=== PATIENT | female | born 1935 | race Caucasian/White ===

== ENCOUNTER 2017-08-09 18:19 | Inpatient (IN) | payer OTHER, MEDICARE ==
[~2017-08-09] VITALS: Ht 158.8 cm; Wt 60.0 kg
[~2017-08-09 18:19] MED LIST: CLOP75 PO; ENAL20TA PO; FELO10TA PO; FISHOIL PO; OS-CTAB3 PO; SIMV40TA PO; TAB-TAB PO
[2017-08-09 18:27] VITALS: BP 154/65; PULSE 92; RESP 18; TEMP 99.1; O2SAT 99
--- NOTE | 2017-08-09 18:55 | PD ---
HPI Chief Complaint: Skin Problem Time Seen by Provider: 18:41 Travel History International Travel<30 days: No Contact w/Intl Traveler<30days: No Traveled to known affect area: No History of Present Illness HPI 82-year-old female complains of redness swelling and pain right foot and right lower leg. Patient states that she tripped and fell about 4 days ago. Patient was seen at local urgent care center and had x-ray done however does not know the results of the x-ray. Patient was put on antibiotic, cephalexin, 500 mg twice a day.. Patient has been taking the antibiotic as directed. Patient states that she had increase in redness swelling the other since then. Patient denies any other injury. Patient complains sharp pain localized the right foot and right lower leg. Patient denies any pain radiation. Patient states the pain is worse with weightbearing. On a scale of 1-10 the pain is a 7. Patient denies any fever chills. Patient has history hypertension, hyperlipidemia. Patient denies history diabetes. 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 PFSH Past Medical History Hx Anticoagulant Therapy: Yes (PLAVIX) Arthritis: Yes (HANDS) Cancer: Yes (SKIN) Cardiovascular Problems: Yes High Cholesterol: Yes Cerebrovascular Accident: Yes Diabetes: Yes (BORDERLINE) Endocrine: Yes Genitourinary: Yes (RETENTION) Hypertension: Yes Immune Disorder: No Musculoskeletal: Yes Neurologic: No Psychiatric: No Reproductive: No Respiratory: No ?: Not Past Surgical History Gynecologic Surgery: Yes (HYSTERECTOMY) Hysterectomy: Yes Social History Alcohol Use: Yes (wine couple times a week) Tobacco Use: No Substance Use: No Allergies-Medications (Allergen,Severity, Reaction): Coded Allergies: No Known Allergies (Verified Adverse Reaction, Unknown, 08/09/17) Reported Meds & Prescriptions Reported Meds & Active Scripts Active Reported Cephalexin 500 Mg Cap 500 Mg PO Q12H Latanoprost Opth Drops (Latanoprost) 0.005% Drops 1 Drop EACH EYE HS Refrigerate until opened. Atorvastatin (Atorvastatin Calcium) 40 Mg Tab 40 Mg PO HS Felodipine ER (Felodipine) 10 mg Yumiko 10 Mg PO DAILY Enalapril (Enalapril Maleate) 20 Mg Tab 20 Mg PO DAILY Plavix (Clopidogrel Bisulfate) 75 Mg Tab 75 Mg PO DAILY Review of Systems General / Constitutional: No: Fever Eyes: No: Visual changes HENT: No: Headaches Cardiovascular: No: Chest Pain or Discomfort Respiratory: No: Shortness of Breath Gastrointestinal: No: Abdominal Pain Genitourinary: No: Dysuria Musculoskeletal: Positive: Edema, Pain Skin: No Rash Neurologic: No: Weakness Psychiatric: No: Depression Endocrine: No: Polydipsia Hematologic/Lymphatic: No: Easy Bruising Physical Exam Narrative GENERAL: Well-nourished, well-developed patient. SKIN: Focused skin assessment warm/dry. HEAD: Normocephalic. EYES: No scleral icterus. No injection or drainage. NECK: Supple, trachea midline. No JVD or lymphadenopathy. CARDIOVASCULAR: Regular rate and rhythm without murmurs, gallops, or rubs. RESPIRATORY: Breath sounds equal bilaterally. No accessory muscle use. GASTROINTESTINAL: Abdomen soft, non-tender, nondistended. MUSCULOSKELETAL: No cyanosis, or edema. BACK: Nontender without obvious deformity. No CVA tenderness. Patient has redness swelling tenderness diffuse over the right foot up to the right ankle. Mild ecchymosis noted lateral aspect of the right lower leg with tenderness on palpation. A healing wound with a scab over the dorsal aspect of the right foot. Data Data Last Documented VS Vital Signs Date Time Temp Pulse Resp B/P (MAP) Pulse Ox O2 Delivery O2 Flow Rate FiO2 08/09/17 19:06 18 98 Room Air 08/09/17 18:27 99.1 92 154/65 (94) Orders Orders Complete Blood Count With Diff (08/09/17 18:48) Comprehensive Metabolic Panel (08/09/17 18:48) Prothrombin Time / Inr (Pt) (08/09/17 18:48) Act Partial Throm Time (Ptt) (08/09/17 18:48) Blood Culture (08/09/17 18:48) Urinalysis - C+S If Indicated (08/09/17 18:48) Chest, Single Ap (08/09/17 18:48) Iv Access Insert/Monitor (08/09/17 18:48) Ecg Monitoring (08/09/17 18:48) Oximetry (08/09/17 18:48) Foot, Complete ([id number]) (08/09/17 18:48) Tibia/Fibula (Ap/Lat) (08/09/17 18:48) Labs Laboratory Tests Test 08/09/17 19:04 08/09/17 20:10 White Blood Count 9.8 TH/MM3 Red Blood Count 4.21 MIL/MM3 Hemoglobin 12.4 GM/DL Hematocrit 36.4 % Mean Corpuscular Volume 86.3 FL Mean Corpuscular Hemoglobin 29.4 PG Mean Corpuscular Hemoglobin Concent 34.1 % Red Cell Distribution Width 12.6 % Platelet Count 222 TH/MM3 Mean Platelet Volume 8.4 FL Neutrophils (%) (Auto) 61.3 % Lymphocytes (%) (Auto) 26.5 % Monocytes (%) (Auto) 9.5 % Eosinophils (%) (Auto) 2.1 % Basophils (%) (Auto) 0.6 % Neutrophils # (Auto) 6.0 TH/MM3 Lymphocytes # (Auto) 2.6 TH/MM3 Monocytes # (Auto) 0.9 TH/MM3 Eosinophils # (Auto) 0.2 TH/MM3 Basophils # (Auto) 0.1 TH/MM3 CBC Comment DIFF FINAL Differential Comment Prothrombin Time 10.1 SEC Prothromb Time International Ratio 1.0 RATIO Activated Partial Thromboplast Time 28.5 SEC Blood Urea Nitrogen 20 MG/DL Creatinine 0.82 MG/DL Random Glucose 118 MG/DL Total Protein 8.8 GM/DL Albumin 4.2 GM/DL Calcium Level 9.9 MG/DL Alkaline Phosphatase 118 U/L Aspartate Amino Transf (AST/SGOT) 21 U/L Alanine Aminotransferase (ALT/SGPT) 26 U/L Total Bilirubin 0.8 MG/DL Sodium Level 137 MEQ/L Potassium Level 3.8 MEQ/L Chloride Level 103 MEQ/L Carbon Dioxide Level 26.5 MEQ/L Anion Gap 8 MEQ/L Estimat Glomerular Filtration Rate 66 ML/MIN Urine Color YELLOW Urine Turbidity CLEAR Urine pH 6.0 Urine Specific [place] 1.020 Urine Protein 30 mg/dL Urine Glucose (UA) NEG mg/dL Urine Ketones 15 mg/dL Urine Occult Blood SMALL Urine Nitrite NEG Urine Bilirubin NEG Urine Urobilinogen 0.2 MG/DL Urine Leukocyte Esterase NEG Urine RBC 0-3 /hpf Urine WBC 3-5 /hpf Urine Squamous Epithelial Cells 0-5 /hpf Urine Amorphous Sediment FEW Urine Hyaline Casts 0-2 /lpf Urine Granular Casts 3-5 /lpf Microscopic Urinalysis Comment CULT NOT INDICATED MDM Medical Decision Making Medical Screen Exam Complete: Yes Emergency Medical Condition: Yes Interpretation(s) 20:55 PM. Last Impressions Tibia/Fibula X-Ray 08/09/[id number] Signed Impressions: Service Date/Time: Wednesday, August 09, 2017 18:53 - CONCLUSION: 1. No acute bony abnormalities. Mild soft tissue swelling over the lateral malleolus. Kole Casper MD Foot X-Ray [id number] Signed Impressions: Service Date/Time: Wednesday, August 09, 2017 18:53 - CONCLUSION: 1. Soft tissue swelling on the dorsum of the foot. No acute bony abnormalities. 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 Kole Casper MD Chest X-Ray [id number]/09/171847 Signed Impressions: Service Date/Time: Wednesday, August 09, 2017 18:53 - CONCLUSION: No acute disease. Kole Casper MD 2055 PM. CBC within normal limits. CMP within normal limits. BUN 20. Alkaline phosphatase 118. UA is negative. Differential Diagnosis Differential diagnosis including cellulitis, fracture, dislocation. Narrative Course 82-year-old female with redness swelling tenderness right foot an injury to the right lower leg. Status post fall. Vancomycin 1 g IV given. Diagnosis Primary Impression: Cellulitis of right foot Additional Impression: Failure of outpatient treatment Admitting Information Admitting Physician Requests: Admit Moustapha Love MD Aug 09, 2017 18:55
[2017-08-09] MEDS ORDERED: LATA0.002 EACH EYE (19:05)
[2017-08-09] MEDS ORDERED: PLAV75TA29 PO (19:05)
[2017-08-09] MEDS ORDERED: ATOR40TA16 PO (19:05)
[2017-08-09] MEDS ORDERED: FELO10TA PO (19:05)
[2017-08-09] MEDS ORDERED: ENAL20TA PO (19:05)
[2017-08-09 19:06] VITALS: RESP 18; O2SAT 98
[2017-08-09] MEDS ORDERED: CEPH500C PO (19:08)
[2017-08-09 19:11] LABS: BASOPHIL # 0.1 TH/MM3 (0-0.2); BASOPHIL % 0.6 % (0.0-2.0); EOSINOPHIL # 0.2 TH/MM3 (0-0.4); EOSINOPHIL % 2.1 % (0.0-4.0); HEMATOCRIT 36.4 % (35.0-46.0); HEMOGLOBIN 12.4 GM/DL (11.6-15.3); LYMPH % 26.5 % (9.0-44.0); LYMPHOCYTE # 2.6 TH/MM3 (1.0-4.8); MEAN CELL VOLUME 86.3 FL (80.0-100.0); MEAN CORPUSCULAR HEMOGLOBIN 29.4 PG (27.0-34.0); MEAN CORPUSCULAR HGB CONC 34.1 % (32.0-36.0); MEAN PLATELET VOLUME 8.4 FL (7.0-11.0); MONO % 9.5 % (0.0-8.0); MONOCYTE # 0.9 TH/MM3 (0-0.9); NEUT % 61.3 % (16.0-70.0); PLATELET COUNT 222 TH/MM3 (150-450); RED BLOOD COUNT 4.21 MIL/MM3 (4.00-5.30); RED CELL DISTRIBUTION WIDTH 12.6 % (11.6-17.2); WHITE BLOOD COUNT 9.8 TH/MM3 (4.0-11.0)
[2017-08-09 19:18] LABS: CHLORIDE 103 MEQ/L (98-107); SODIUM (NA) 137 MEQ/L (136-145)
[2017-08-09 19:21] LABS: CALCIUM 9.9 MG/DL (8.5-10.1)
[2017-08-09 19:22] LABS: ALBUMIN 4.2 GM/DL (3.4-5.0); BICARBONATE 26.5 MEQ/L (21.0-32.0); BLOOD UREA NITROGEN 20 MG/DL (7-18); GLUCOSE,RANDOM 118 MG/DL (74-106)
[2017-08-09 19:24] LABS: PROTHROMBIN TIME - PATIENT 10.1 SEC (9.8-11.6)
[2017-08-09 19:25] LABS: ALT (GPT) 26 U/L (10-53); AST (GOT) 21 U/L (15-37); CREATININE 0.82 MG/DL (0.50-1.00); GLOMERULAR FILTRATION RATE 66 ML/MIN (>89)
[2017-08-09 19:26] LABS: TOTAL BILIRUBIN ADULT 0.8 MG/DL (0.2-1.0); TOTAL PROTEIN 8.8 GM/DL (6.4-8.2)
[2017-08-09 19:28] LABS: ALKALINE PHOSPHATASE 118 U/L (45-117)
--- NOTE | 2017-08-09 19:39 | RADRPT ---
EXAM DATE/TIME: 08/09/2017 18:53 [facility] COMPARISON: CHEST SINGLE AP, October 30, 2010, 15:54. INDICATIONS : Trauma, fall. MEDICAL HISTORY : Hypertension. SURGICAL HISTORY : None. ENCOUNTER: Initial ACUITY: 4 - 6 days PAIN SCORE: 0/10 LOCATION: Bilateral chest FINDINGS: A single view of the chest demonstrates the lungs to be symmetrically aerated without evidence of mas s, infiltrate or effusion. The cardiomediastinal contours are unremarkable. Osseous structures are intact. CONCLUSION: No acute disease. Kole Casper MD on August 09, 2017 at 19:36 Board Certified Radiologist. This report was verified electronically.
--- NOTE | 2017-08-09 19:42 | RADRPT ---
EXAM DATE/TIME: 08/09/2017 18:53 [facility] COMPARISON: No previous studies available for comparison. INDICATIONS : Redness and swelling to dorsal right foot after tripping 4 days ago over a tree stump. MEDICAL HISTORY : None. SURGICAL HISTORY : None. ENCOUNTER: Initial ACUITY: 4 - 6 days PAIN SCORE: 7/10 LOCATION: Right foot. FINDINGS: Three view examination of the right foot demonstrates no dislocation, or fracture. The tarsal bones appear intact. The interphalangeal and metatarsophalangeal joints are intact. The calcaneus is int act. Bony mineralization is normal. CONCLUSION: 1. Soft tissue swelling on the dorsum of the foot. No acute bony abnormalities. Mild to moderate oste oarthritis of the right foot. Kole Casper MD on August 09, 2017 at 19:37 Board Certified Radiologist. This report was verified electronically.
--- NOTE | 2017-08-09 19:43 | RADRPT ---
EXAM DATE/TIME: 08/09/2017 18:53 [facility] COMPARISON: No previous studies available for comparison. INDICATIONS : Redness and swelling to lateral distal right tibia after tripping over a tree stump 4 days ago. MEDICAL HISTORY : None. SURGICAL HISTORY : None. ENCOUNTER: Initial ACUITY: 4 - 6 days PAIN SCORE: 7/10 LOCATION: Right tibia. FINDINGS: Two view examination of the right tibia demonstrates no evidence of fracture or dislocation. Bony mi neralization is normal. The soft tissue structures are swollen over the lateral malleolus. CONCLUSION: 1. No acute bony abnormalities. Mild soft tissue swelling over the lateral malleolus. Kole Casper MD on August 09, 2017 at 19:40 Board Certified Radiologist. This report was verified electronically.
[2017-08-09 20:14] LABS: BILIRUBIN, URINE NEG (NEG); BLOOD, URINE SMALL (NEG); GLUCOSE,URINE NEG (NEG); KETONE, URINE 15 mg/dL (NEG); NITRITE,URINE NEG (NEG); URINE COLOR YELLOW (YELLW/STRAW); URINE LEUKOCYTE ESTERASE NEG (NEG)
[2017-08-09 20:22] LABS: HYALINE CAST, URINE 0-2 /lpf (RARE)
[2017-08-09 20:23] LABS: AMORPHOUS SEDIMENT, URINE FEW; RBC, URINE 0-3 /hpf (0-3); SQUAMOUS EPITHELIAL CELL URINE 0-5 /hpf (0-5)
[2017-08-09] MEDS ORDERED: LACTULOSE SYRUP 20 GM/30 ML CUP PO PRN (22:45)
[2017-08-09] MEDS ORDERED: Vancomycin Consult Pharmacy 1 EA OTHER SCH (22:45)
[2017-08-09] MEDS ORDERED: NALOXONE HCL 0.4 MG/ML AMP IV PUSH PRN (22:45)
[2017-08-09] MEDS ORDERED: SENNOSIDES 8.6 MG TAB PO PRN (22:45)
[2017-08-09] MEDS ORDERED: ONDANSETRON HCL 4 MG/2 ML VIAL IVP PRN (22:45)
[2017-08-09] MEDS ORDERED: MAGNESIUM HYDROXIDE SUSP 30 ML CUP PO PRN (22:45)
[2017-08-09] MEDS ORDERED: BISACODYL 10 MG SUPP RECTAL PRN (22:45)
[2017-08-09] MEDS: PIPERACIL-TAZO 3.375 GM PREMIX 50 ML IV SCH (23:02)
[2017-08-09] MEDS: ENOXAPARIN SODIUM 40 MG/0.4 ML SYRINGE SQ SCH (23:02)
[2017-08-09 23:09] VITALS: BP 138/62; PULSE 83
[2017-08-09 23:59] VITALS: PULSE 79
[2017-08-10] VITALS (7 sets, daily range): BP systolic 111–155; BP diastolic 55–70; PULSE 69–79; RESP 16–20; TEMP 97.6–98.8; O2SAT 93–97
[2017-08-10] MEDS: LATANOPROST 0.005% OPHT SOLN 2.5 ML BTL EACH EYE SCH ×2 (00:20→21:29)
[2017-08-10] MEDS: VANCOMYCIN 1,000 MG/NS 250 ML IV SCH ×4 (00:20→23:29)
[2017-08-10] MEDS: PIPERACIL-TAZO 3.375 GM PREMIX 50 ML IV SCH ×4 (05:22→21:29)
[2017-08-10 06:38] LABS: AUTOMATED NEUTROPHIL # 3.6 TH/MM3 (1.8-7.7); BASOPHIL % 0.4 % (0.0-2.0); EOSINOPHIL # 0.2 TH/MM3 (0-0.4); EOSINOPHIL % 2.4 % (0.0-4.0); HEMOGLOBIN 10.9 GM/DL (11.6-15.3); LYMPH % 34.9 % (9.0-44.0); LYMPHOCYTE # 2.5 TH/MM3 (1.0-4.8); MEAN CORPUSCULAR HEMOGLOBIN 28.4 PG (27.0-34.0); MEAN PLATELET VOLUME 8.8 FL (7.0-11.0); MONO % 10.7 % (0.0-8.0); MONOCYTE # 0.8 TH/MM3 (0-0.9); NEUT % 51.6 % (16.0-70.0); PLATELET COUNT 204 TH/MM3 (150-450); RED BLOOD COUNT 3.83 MIL/MM3 (4.00-5.30); RED CELL DISTRIBUTION WIDTH 12.6 % (11.6-17.2); WHITE BLOOD COUNT 7.1 TH/MM3 (4.0-11.0)
[2017-08-10 06:55] LABS: BICARBONATE 26.3 MEQ/L (21.0-32.0); CREATININE 0.68 MG/DL (0.50-1.00)
[2017-08-10] MEDS: ENALAPRIL MALEATE 10 MG TAB PO SCH (08:58)
[2017-08-10] MEDS: CLOPIDOGREL 75 MG TAB PO SCH (08:58)
[2017-08-10] MEDS: SODIUM CHLORIDE 0.9% FLUSH 10 ML FLUSH IV FLUSH SCH ×2 (08:58→21:29)
--- NOTE | 2017-08-10 10:50 | HHI.HP ---
[facility] Service [facility] Primary Care Physician Jaron Spear MD Admission Diagnosis Right foot cellulitis. Failure of outpatient treatment. Diagnoses: (1) Failure of outpatient treatment (2) Cellulitis of right foot Chief Complaint: Right lower extremity swelling and erythema Travel History International Travel<30 Days: No Contact w/Intl Traveler <30 Da: No Traveled to Known Affected Are: No History of Present Illness This is an 82-year-old female patient with a known medical history of CVA, hypertension and hyperlipidemia who presented to the ED with complaints of right lower extremity erythema and swelling. Patient states that 4 days ago she tripped and fell hitting the dorsal aspect of her right foot. Over the course of the last 4 days she went to the urgent care, had x-rays done with unknown results and placed on antibiotics, cephalexin 500 mg twice a day. Patient states she took 2 days worth of antibiotics and the swelling and erythema and just became worse with worsening pain which led to her presentation. Patient denies any recent headache, shortness of breath, abdominal pain, nausea, vomiting or diarrhea or dysuria. She does admit to subjective fevers and chills over the last couple days. Pain is rated a 7 out of 10 at its worst, with worsening when weightbearing. Denies any history of diabetes. PCP is Dr. Spear. Last seen 1 month ago with no changes in medicines. Review of Systems Constitutional: COMPLAINS OF: Fever, Chills Eyes: DENIES: Blurred vision, Diplopia Respiratory: DENIES: Cough, Sputum production, Shortness of breath Cardiovascular: DENIES: Chest pain Gastrointestinal: DENIES: Abdominal pain, Black stools, Bloody stools, Constipation, Diarrhea, Nausea, Vomiting Musculoskeletal: DENIES: Joint pain Integumentary: COMPLAINS OF: Abnormal pigmentation (Right foot erythema and swelling and ecchymosis) Hematologic/lymphatic: DENIES: Bruising Psychiatric: DENIES: Anxiety Except as stated in HPI: all other systems reviewed are Neg Past Family Social History Past Medical History History of skin cancer Dyslipidemia History of CVA with no residual weakness on Plavix Arthritis Hypertension Past Surgical History Hysterectomy Reported Medications Active Reported Cephalexin 500 Mg Cap 500 Mg PO Q12H Latanoprost Opth Drops (Latanoprost) 0.005% Drops 1 Drop EACH EYE HS Refrigerate until opened. Atorvastatin (Atorvastatin Calcium) 40 Mg Tab 40 Mg PO HS Felodipine ER (Felodipine) 10 mg Yumiko 10 Mg PO DAILY Enalapril (Enalapril Maleate) 20 Mg Tab 20 Mg PO DAILY Plavix (Clopidogrel Bisulfate) 75 Mg Tab 75 Mg PO DAILY Allergies: Coded Allergies: No Known Allergies (Verified Allergy, Unknown, 08/09/17) Active Ordered Medications Current Medications Medications (Trade) Dose Ordered Sig/Deana Route Start Time Stop Time Status Last Admin (NS Flush) 2 ml UNSCH PRN IV FLUSH 08/09/17 22:45 (NS Flush) 2 ml BID IV FLUSH 08/10/17 09:00 08/10/17 08:58 (Tylenol) 650 mg Q4H PRN PO 08/09/17 22:45 (Zofran Inj) 4 mg Q6H PRN IVP 08/09/17 22:45 (Lovenox Inj) 40 mg Q24H SQ 08/09/17 22:45 08/09/17 23:02 (Narcan Inj) 0.4 mg UNSCH PRN IV PUSH 08/09/17 22:45 (Milk Of Magnesia Liq) 30 ml Q12H PRN PO 08/09/17 22:45 (Senokot) 17.2 mg Q12H PRN PO 08/09/17 22:45 (Dulcolax Supp) 10 mg DAILY PRN RECTAL 08/09/17 22:45 (Lactulose Liq) 30 ml DAILY PRN PO 08/09/17 22:45 (Lipitor) 40 mg HS PO 08/10/17 21:00 (Plavix) 75 mg DAILY PO 08/10/17 09:00 08/10/17 08:58 (Vasotec) 20 mg DAILY PO 08/10/17 09:00 08/10/17 08:58 (Xalatan 0.005% Opth Soln) 1 drop HS EACH EYE 08/09/17 22:45 08/10/17 00:20 (Norvasc) 10 mg DAILY PO 08/10/17 09:00 08/10/17 08:58 Piperacillin Sod/ Tazobactam Sod 50 ml @ 100 mls/hr Q6H IV 08/09/17 22:45 08/10/17 11:42 Pharmacy Profile Note 0 ml @ 0 mls/hr UNSCH OTHER 08/09/17 22:45 Vancomycin HCl 1000 mg/Sodium Chloride 250 ml @ 250 mls/hr Q24H IV 08/10/17 00:00 08/10/17 00:20 ([facility] Ordered Lab Info) SPECIFIC LAB TO BE ... ONCE ONCE .XX 08/11/17 23:45 08/11/17 23:46 Family History Maternal medical history significant for dementia and cardiovascular disease. Father had history of rheumatoid arthritis. Social History Patient denies any tobacco abuse. Admits to 1 glass of wine per night. Denies any illicit drug use. Physical Exam Vital Signs Vital Signs Date Time Temp Pulse Resp B/P (MAP) Pulse Ox O2 Delivery O2 Flow Rate FiO2 08/10/17 08:58 97.6 77 16 135/63 (87) 95 08/10/17 04:00 98.2 79 20 123/58 (79) 93 08/10/17 00:00 98.8 78 20 155/69 (97) 94 08/09/17 23:59 79 08/09/17 23:09 83 138/62 (87) 08/09/17 19:06 18 98 Room Air 08/09/17 18:27 99.1 92 18 154/65 (94) 99 Physical Exam GENERAL: Well-developed, well-nourished patient in [facility]. SKIN: Warm and dry. No rash. Right foot with erythema and swelling and ecchymosis. HEAD: Normocephalic. Atraumatic. EYES: Pupils equal and round. No scleral icterus. No injection or drainage. ENT: No nasal bleeding or discharge. Mucous membranes pink and moist. NECK: Supple. Trachea midline. CARDIOVASCULAR: Regular rate and rhythm. S1, S2 noted. No murmur appreciated. RESPIRATORY: No accessory muscle use. Clear to auscultation. Breath sounds equal bilaterally. GASTROINTESTINAL: Abdomen soft, non-tender, nondistended. Normoactive bowel sounds x4. MUSCULOSKELETAL: No obvious deformities. Extremities without clubbing, cyanosis. Right lower foot with erythema, swelling and ecchymosis. NEUROLOGICAL: Awake and alert. No obvious cranial nerve deficits. Motor grossly within normal limits. 5/5 muscle strength in bilateral upper and lower extremities. Normal speech. PSYCHIATRIC: Appropriate mood and affect; insight and judgment normal. Laboratory Laboratory Tests Test 08/09/17 19:04 08/09/17 20:10 08/10/17 05:06 White Blood Count 9.8 7.1 Red Blood Count 4.21 3.83 Hemoglobin 12.4 10.9 Hematocrit 36.4 33.0 Mean Corpuscular Volume 86.3 86.0 Mean Corpuscular Hemoglobin 29.4 28.4 Mean Corpuscular Hemoglobin Concent 34.1 33.0 Red Cell Distribution Width 12.6 12.6 Platelet Count 222 204 Mean Platelet Volume 8.4 8.8 Neutrophils (%) (Auto) 61.3 51.6 Lymphocytes (%) (Auto) 26.5 34.9 Monocytes (%) (Auto) 9.5 10.7 Eosinophils (%) (Auto) 2.1 2.4 Basophils (%) (Auto) 0.6 0.4 Neutrophils # (Auto) 6.0 3.6 Lymphocytes # (Auto) 2.6 2.5 Monocytes # (Auto) 0.9 0.8 Eosinophils # (Auto) 0.2 0.2 Basophils # (Auto) 0.1 0.0 CBC Comment DIFF FINAL DIFF FINAL Differential Comment Prothrombin Time 10.1 Prothromb Time International Ratio 1.0 Activated Partial Thromboplast Time 28.5 Blood Urea Nitrogen 20 13 Creatinine 0.82 0.68 Random Glucose 118 102 Total Protein 8.8 Albumin 4.2 Calcium Level 9.9 9.0 Alkaline Phosphatase 118 Aspartate Amino Transf (AST/SGOT) 21 Alanine Aminotransferase (ALT/SGPT) 26 Total Bilirubin 0.8 Sodium Level 137 140 Potassium Level 3.8 3.4 Chloride Level 103 107 Carbon Dioxide Level 26.5 26.3 Anion Gap 8 7 Estimat Glomerular Filtration Rate 66 82 Urine Color YELLOW Urine Turbidity CLEAR Urine pH 6.0 Urine Specific [place] 1.020 Urine Protein 30 Urine Glucose (UA) NEG Urine Ketones 15 Urine Occult Blood SMALL Urine Nitrite NEG Urine Bilirubin NEG Urine Urobilinogen 0.2 Urine Leukocyte Esterase NEG Urine RBC 0-3 Urine WBC 3-5 Urine Squamous Epithelial Cells 0-5 Urine Amorphous Sediment FEW Urine Hyaline Casts 0-2 Urine Granular Casts 3-5 Microscopic Urinalysis Comment CULT NOT INDICATED Date/Time Source Procedure Growth Status 08/09/17 19:04 Blood Peripheral Aerobic Blood Culture Pending Received 08/09/17 19:04 Blood Peripheral Anaerobic Blood Culture Pending Received Result Diagram: 08/10/17 0506 08/10/17 0506 Imaging Last Impressions Tibia/Fibula X-Ray 08/09/171847 Signed Impressions: Service Date/Time: Wednesday, August 09, 2017 18:53 - CONCLUSION: 1. No acute bony abnormalities. Mild soft tissue swelling over the lateral malleolus. Kole Casper MD Foot X-Ray 08/09/171847 Signed Impressions: Service Date/Time: Wednesday, August 09, 2017 18:53 - CONCLUSION: 1. Soft tissue swelling on the dorsum of the foot. No acute bony abnormalities. 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 Kole Casper MD Chest X-Ray 08/09/171847 Signed Impressions: Service Date/Time: Wednesday, August 09, 2017 18:53 - CONCLUSION: No acute disease. Kole Casper MD Septic Shock Reassessment Septic shock perfusion: reassessment completed Caprini VTE Risk Assessment Caprini VTE Risk Assessment: Mod/High Risk (score >= 2) Caprini Risk Assessment Model Point Value = 1 Point Value = 2 Point Value = 3 Point Value = 5 Age 41-60 Minor surgery BMI > 25 kg/m2 Swollen legs Varicose veins or History of unexplained or recurrent spontaneous Oral contraceptives or hormone replacement Sepsis (< 1 month) Serious lung disease, including pneumonia (< 1 month) Abnormal pulmonary function Acute myocardial infarction Congestive heart failure (< 1 month) History of inflammatory bowel disease Medical patient at bed rest Age 61-74 Arthroscopic surgery Major open surgery (> 45 min) Laparoscopic surgery (> 45 min) Malignancy Confined to bed (> 72 hours) Immobilizing plaster cast Central venous access Age >= 75 History of VTE Family history of VTE Factor V Leiden Prothrombin [id number] Lupus anticoagulant Anticardiolipin antibodies Elevated serum homocysteine Heparin-induced thrombocytopenia Other congenital or acquired thrombophilia Stroke (< 1 month) Elective arthroplasty Hip, pelvis, or leg fracture Acute spinal cord injury (< 1 month) Prophylaxis Regimen Total Risk Factor Score Risk Level Prophylaxis Regimen 0-1 Low Early ambulation 2 Moderate Order ONE of the following: *Sequential Compression Device (SCD) *Heparin 5000 units SQ BID 3-4 Higher Order ONE of the following medications: *Heparin 5000 units SQ TID *Enoxaparin/Lovenox 40 mg SQ daily (WT < 150 kg, CrCl > 30 mL/min) *Enoxaparin/Lovenox 30 mg SQ daily (WT < 150 kg, CrCl > 10-29 mL/min) *Enoxaparin/Lovenox 30 mg SQ BID (WT < 150 kg, CrCl > 30 mL/min) AND/OR *Sequential Compression Device (SCD) 5 or more Highest Order ONE of the following medications: *Heparin 5000 units SQ TID (Preferred with Epidurals) *Enoxaparin/Lovenox 40 mg SQ daily (WT < 150 kg, CrCl > 30 mL/min) *Enoxaparin/Lovenox 30 mg SQ daily (WT < 150 kg, CrCl > 10-29 mL/min) *Enoxaparin/Lovenox 30 mg SQ BID (WT < 150 kg, CrCl > 30 mL/min) AND *Sequential Compression Device (SCD) Assessment and Plan Problem List: (1) Cellulitis of right foot ICD Code: L03.115 - Cellulitis of right lower limb Status: Acute Plan: Patient tripped and fell 4 days ago with subsequent right foot swelling, erythema and ecchymosis. There is also a small necrotic area to the dorsal aspect of her foot. No drainage or open area. Right foot x-ray reviewed showing soft tissue swelling on the dorsum of the foot. No acute bony abnormalities. 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 Tibia/fibula x-ray showing no acute bony abnormalities. Mild swelling in the soft tissue of the lateral malleolus. Blood cultures pending, follow growth. No growth 1 day. Afebrile overnight. No leukocytosis for now. UA negative. Chest x-ray reviewed showing no acute cardiopulmonary disease. Patient placed on Zosyn and vancomycin IV. Monitor for any signs of infection. Podiatry consulted, appreciate input recommendations. (2) Hypertension ICD Code: I10 - Essential (primary) hypertension Plan: Continue home Norvasc. Monitor blood pressure trends. DVT prophylaxis: SCDs. Lovenox. (3) History of CVA (cerebrovascular accident) ICD Code: Z86.73 - Personal history of transient ischemic attack (TIA), and cerebral infarction without residual deficits Plan: Continue on home Plavix. PT ordered and evaluated, appreciate input recommendations. Nya Urbina August 10, 2017 10:50
[2017-08-10] MEDS: ATORVASTATIN 40 MG TAB PO SCH (21:29)
[2017-08-10] MEDS: ENOXAPARIN SODIUM 40 MG/0.4 ML SYRINGE SQ SCH (23:28)
[2017-08-10] MEDS: ACETAMINOPHEN 325 MG TAB PO PRN (23:28)
[2017-08-11] VITALS (8 sets, daily range): BP systolic 124–197; BP diastolic 58–86; PULSE 61–97; RESP 18–20; TEMP 95.8–98.4; O2SAT 95–98
[2017-08-11] MEDS: PIPERACIL-TAZO 3.375 GM PREMIX 50 ML IV SCH ×4 (04:47→23:36)
[2017-08-11] MEDS: SODIUM CHLORIDE 0.9% FLUSH 10 ML FLUSH IV FLUSH PRN (04:48)
[2017-08-11 06:59] LABS: CREATININE 0.77 MG/DL (0.50-1.00)
[2017-08-11] MEDS: ENALAPRIL MALEATE 10 MG TAB PO SCH (08:06)
[2017-08-11] MEDS: CLOPIDOGREL 75 MG TAB PO SCH (08:07)
[2017-08-11] MEDS: ACETAMINOPHEN 325 MG TAB PO PRN ×3 (08:07→23:47)
[2017-08-11] MEDS: SODIUM CHLORIDE 0.9% FLUSH 10 ML FLUSH IV FLUSH SCH ×2 (08:07→20:04)
--- NOTE | 2017-08-11 08:41 | HHI.PR ---
Subjective Remarks Follow-up right foot cellulitis. Patient seen and examined, lying in bed comfortably ambulating well with minimal pain. Swelling is improved although erythema is present as well as dorsal necrotic area. Podiatry in to see patient , MRI ordered. Likely hematoma versus early onset abscess. We will continue IV antibiotics. Afebrile. Vital signs stable. Labs are reviewed today. Objective Vitals Vital Signs Date Time Temp Pulse Resp B/P (MAP) Pulse Ox O2 Delivery O2 Flow Rate FiO2 08/11/17 07:30 97.5 68 20 137/72 (93) 98 08/11/17 04:00 98.2 65 18 124/58 (80) 95 08/11/17 00:28 18 08/11/17 00:00 98.4 77 18 124/62 (82) 95 08/10/17 20:00 69 08/10/17 20:00 98.5 73 18 135/64 (87) 95 08/10/17 17:14 98.4 74 16 112/70 (84) 97 08/10/17 12:32 98.7 74 16 111/55 (73) 94 08/10/17 08:58 97.6 77 16 135/63 (87) 95 I/O 08/10/17 08/10/17 08/10/17 08/11/17 08/11/17 08/11/17 07:00 15:00 23:00 07:00 15:00 23:00 Intake Total 590 ml 250 ml 50 ml 580 ml Balance 590 ml 250 ml 50 ml 580 ml Intake Oral 240 ml 200 ml 580 ml IV Total 350 ml 50 ml 50 ml # Voids 2 2 3 # Bowel Movements 0 Result Diagram: 08/10/17 0506 08/11/17 0610 Imaging Last Impressions Foot MRI 08/11/17 0000 Signed Impressions: Service Date/Time: Friday, August 11, 2017 11:24 - CONCLUSION: 1. Nonspecific soft tissue swelling in the soft tissues along the dorsum of the mid right foot. 2. Mild degenerative arthritis involving the first metatarsal-phalangeal joint. 3. No evidence of a soft tissue abscess or osteomyelitis. David Garcia MD Tibia/Fibula X-Ray 08/09/17 9164 Signed Impressions: Service Date/Time: Wednesday, August 09, 2017 18:53 - CONCLUSION: 1. No acute bony abnormalities. Mild soft tissue swelling over the lateral malleolus. Kole Casper MD Foot X-Ray 08/09/171847 Signed Impressions: Service Date/Time: Wednesday, August 09, 2017 18:53 - CONCLUSION: 1. Soft tissue swelling on the dorsum of the foot. No acute bony abnormalities. 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 Kole Casper MD Chest X-Ray 08/09/171847 Signed Impressions: Service Date/Time: Wednesday, August 09, 2017 18:53 - CONCLUSION: No acute disease. Kole Casper MD Objective Remarks GENERAL: Well-developed, well-nourished patient in [facility]. SKIN: Warm and dry. No rash. Right foot with erythema and swelling and ecchymosis. HEAD: Normocephalic. Atraumatic. EYES: Pupils equal and round. No scleral icterus. No injection or drainage. ENT: No nasal bleeding or discharge. Mucous membranes pink and moist. NECK: Supple. Trachea midline. CARDIOVASCULAR: Regular rate and rhythm. S1, S2 noted. No murmur appreciated. RESPIRATORY: No accessory muscle use. Clear to auscultation. Breath sounds equal bilaterally. GASTROINTESTINAL: Abdomen soft, non-tender, nondistended. Normoactive bowel sounds x4. MUSCULOSKELETAL: No obvious deformities. Extremities without clubbing, cyanosis. Right lower foot with erythema, swelling and ecchymosis. NEUROLOGICAL: Awake and alert. No obvious cranial nerve deficits. Motor grossly within normal limits. 5/5 muscle strength in bilateral upper and lower extremities. Normal speech. PSYCHIATRIC: Appropriate mood and affect; insight and judgment normal. A/P Problem List: (1) Cellulitis of right foot ICD Code: L03.115 - Cellulitis of right lower limb Status: Acute Plan: Patient tripped and fell prior to presentation with subsequent right foot swelling, erythema and ecchymosis. There is also a small necrotic area to the dorsal aspect of her foot. No drainage or open area. Right foot x-ray reviewed showing soft tissue swelling on the dorsum of the foot. No acute bony abnormalities. 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 Tibia/fibula x-ray showing no acute bony abnormalities. Mild swelling in the soft tissue of the lateral malleolus. Blood cultures pending, follow growth. No growth 2 days. Afebrile overnight. No leukocytosis for now. UA negative. Chest x-ray reviewed showing no acute cardiopulmonary disease. Patient placed on Zosyn and vancomycin IV. Monitor for any signs of infection. Podiatry consulted, appreciate input recommendations. MRI pending. Possible hematoma or early onset abscess. Continue to monitor. (2) Hypertension ICD Code: I10 - Essential (primary) hypertension Plan: Continue home Norvasc. Monitor blood pressure trends. (3) History of CVA (cerebrovascular accident) ICD Code: Z86.73 - Personal history of transient ischemic attack (TIA), and cerebral infarction without residual deficits Plan: Continue on home Plavix. PT ordered and evaluated, appreciate input recommendations. DVT prophylaxis: SCDs. Lovenox. Nya Urbina August 11, 2017 08:41
--- NOTE | 2017-08-11 10:17 | MB ---
cc: Jean Pierre Vergara DPM DATE: 08/11/2017 REASON FOR CONSULTATION: Right foot infection, status post injury fall. HISTORY OF PRESENT ILLNESS: This is an 82-year-old female who sustained an injury in the last 4 days in which she hit her foot on a stump and then hit it on a see wheeler or a concrete block. She continued to have increasing pain and redness. She said there was bleeding initially at the time of the injury. She tried to wrap and elevate, but continued to have significant pain. Currently, I am seeing the patient at bedside. She has improved since being admitted. PAST MEDICAL HISTORY: Positive for CVA, hypertension, hyperlipidemia, current cellulitis to the right foot. ACTIVE MEDICATIONS: 1. Tylenol. 2. Amlodipine. 3. Atorvastatin. 4. Bisacodyl. 5. Clopidogrel. 6. Enalapril. 7. Enoxaparin. 8. Lactulose. 9. Latanoprost. 10. Magnesium hydroxide. 11. Naloxone. 12. Ondansetron. 13. Zosyn. 14. Vancomycin. 15. Senokot. ALLERGIES: NONE LISTED. REVIEW OF SYSTEMS: The patient denies any nausea, vomiting, fever or chills. No bowel tenderness. The patient only has pain of the extremity, right and pretibial area. Left lower extremity without any discomfort. PHYSICAL EXAMINATION: VITAL SIGNS: Temperature is 97.5, pulse rate 68, respiratory rate 20, blood pressure 137/72. She is sating 98% on room air. GENERAL: This is an alert and oriented female ,seen at bedside, exhibiting nonlabored respirations. EXTREMITIES: She is able to move all extremities. Right lower extremity is examined. Most impressive finding is the dorsum aspect of the right foot. There is expansile erythema and edema that extends to the toes. There is a hemorrhagic eschar over the dorsal lateral aspect of the patient's foot. There is no active drainage or bleeding noted. Upon pressure to the area, there is pain. There is no obvious soft tissue emphysema. There was no obvious fluctuance. The soft tissue envelope appears to be hard. Upon palpating the plantar aspect of the foot, there are no obvious signs of clinical compartment syndrome. The patient is capable of range of motion of the digits forefoot, hindfoot and ankle. Sensation appears to be intact to light touch and deep pressure. There is good capillary fill time to the digits. Posterior tibialis artery and dorsalis pedis artery is palpable. There is a very mild pretibial hematoma bruise; however, the tibia is nontender. There is no crepitus. There is no instability noted. LABORATORY DATA: White blood cells 7.1, hemoglobin and hematocrit 10 and 33, platelet count is 204. Chem-7: Sodium 144, potassium 3.4, chloride 107, CO2 is 26.3, BUN 13, creatinine 0.77. Random glucose is 102. AST 21, ALT 21. IMAGING FINDINGS: Foot x-ray: Soft tissue envelope appears to be increased. No air noted within the tissue. Moderate arthritis. No mention of fracture. Tib-fib x-ray: No bony abnormalities. Mild soft tissue swelling noted. No gas noted within the tissue. ASSESSMENT AND PLAN: Right foot cellulitis with likely hematoma versus early onset abscess. My recommendation is an MRI to determine the extent of the fluid collection below the skin. Possible incision and drainage may be indicated versus medical management with compression, elevation, and IV antibiotics for 1-2 days, then discontinuing antibiotics IV and then going home on orals. I am covering for Dr. Drummond today. She will be notified of the plan. I reviewed the case with Dr. Roberts. MRI ordered. AHSAN Troncoso/KALPESH , 09:52 AM , 10:16 AM
[2017-08-11] MEDS ORDERED: GADODIAMIDE PF 287 MG/ML 5 ML VIAL (for RAD MRI) IVCONTRAST ONE (11:30)
--- NOTE | 2017-08-11 12:18 | RADRPT ---
EXAM DATE/TIME: 08/11/2017 11:24 [place] COMPARISON: FOOT RIGHT COMPLETE ([id number]), August 09, 2017, 18:53. INDICATIONS : Abscess. Redness and swelling to dorsal right foot from toes to ankle. CONTRAST: 12 cc Omniscan (gadodiamide) IV MEDICAL HISTORY : Hypertension. SURGICAL HISTORY : None. ENCOUNTER: Subsequent ACUITY: 4-6 days PAIN SCORE: 3/10 LOCATION: Right foot. TECHNIQUE: Multiplanar, multisequence MRI examination was performed without contrast and after the intravenous a dministration of gadolinium. FINDINGS: BONE/CARTILAGE: Bone marrow signal is homogeneous. Focal mild degenerative arthritis at the first metatarsophalangeal joint.. TENDONS: All of the visualized tendons are intact. MISCELLANEOUS: There is nonspecific soft tissue swelling in the soft tissues around the dorsum of the midfoot. No de finite loculated fluid collections are demonstrated. POST-CONTRAST: There are no abnormal areas of enhancement on the post-contrast images. CONCLUSION: 1. Nonspecific soft tissue swelling in the soft tissues along the dorsum of the mid right foot. 2. Mild degenerative arthritis involving the first metatarsal-phalangeal joint. 3. No evidence of a soft tissue abscess or osteomyelitis. David Garcia MD on August 11, 2017 at 12:11 Board Certified Radiologist. This report was verified electronically.
[2017-08-11] MEDS: ATORVASTATIN 40 MG TAB PO SCH (20:04)
[2017-08-11] MEDS: LATANOPROST 0.005% OPHT SOLN 2.5 ML BTL EACH EYE SCH (20:04)
[2017-08-11] MEDS: ENOXAPARIN SODIUM 40 MG/0.4 ML SYRINGE SQ SCH (23:35)
[2017-08-11] MEDS ORDERED: PHARMACY ORDERED LAB ONE (23:45)
[2017-08-12] VITALS (7 sets, daily range): BP systolic 101–167; BP diastolic 56–72; PULSE 60–81; RESP 19–22; TEMP 96.4–98.6; O2SAT 93–99
[2017-08-12] MEDS: VANCOMYCIN 1,000 MG/NS 250 ML IV SCH ×2 (00:20)
[2017-08-12] MEDS: SODIUM CHLORIDE 0.9% FLUSH 10 ML FLUSH IV FLUSH PRN (05:21)
[2017-08-12] MEDS: PIPERACIL-TAZO 3.375 GM PREMIX 50 ML IV SCH ×4 (05:21→23:17)
[2017-08-12 06:35] LABS: BASOPHIL # 0.2 TH/MM3 (0-0.2); BASOPHIL % 2.2 % (0.0-2.0); EOSINOPHIL # 0.2 TH/MM3 (0-0.4); EOSINOPHIL % 3.5 % (0.0-4.0); HEMATOCRIT 33.6 % (35.0-46.0); HEMOGLOBIN 11.4 GM/DL (11.6-15.3); LYMPH % 40.9 % (9.0-44.0); LYMPHOCYTE # 2.8 TH/MM3 (1.0-4.8); MEAN CELL VOLUME 87.5 FL (80.0-100.0); MEAN CORPUSCULAR HEMOGLOBIN 29.8 PG (27.0-34.0); MEAN PLATELET VOLUME 8.6 FL (7.0-11.0); MONO % 9.2 % (0.0-8.0); MONOCYTE # 0.6 TH/MM3 (0-0.9); NEUT % 44.2 % (16.0-70.0); PLATELET COUNT 239 TH/MM3 (150-450); RED BLOOD COUNT 3.84 MIL/MM3 (4.00-5.30); RED CELL DISTRIBUTION WIDTH 12.5 % (11.6-17.2); WHITE BLOOD COUNT 6.9 TH/MM3 (4.0-11.0)
[2017-08-12] MEDS ORDERED: ACETAMINOPHEN/HYDROcodone 325 MG/5 MG TAB PO PRN ×2 (09:30)
[2017-08-12] MEDS: CLOPIDOGREL 75 MG TAB PO SCH (09:38)
[2017-08-12] MEDS: ENALAPRIL MALEATE 10 MG TAB PO SCH (09:38)
[2017-08-12] MEDS: SODIUM CHLORIDE 0.9% FLUSH 10 ML FLUSH IV FLUSH SCH ×2 (09:38→21:52)
--- NOTE | 2017-08-12 11:30 | HHI.PR ---
Subjective Remarks Follow-up right foot cellulitis. Patient seen and examined, lying in bed comfortably in no apparent distress. Pain is well controlled on regimen. Right foot wound assessed, swelling and erythema continued. The legal writing professor at bedside and updated, plan for I&D in the morning. Afebrile overnight. Vital signs are stable. Eating well, no abdominal pain, nausea or vomiting. No other complaints. Blood cultures negative 3 days Objective Vitals Vital Signs Date Time Temp Pulse Resp B/P (MAP) Pulse Ox O2 Delivery O2 Flow Rate FiO2 08/12/17 08:00 97.6 77 19 143/60 (87) 98 08/12/17 04:00 96.4 60 20 101/56 (71) 96 08/12/17 00:00 97.4 65 19 115/59 (77) 93 08/11/17 20:47 68 08/11/17 20:00 97.2 73 20 134/60 (84) 96 08/11/17 20:00 97.2 73 20 134/60 (84) 96 08/11/17 15:41 95.8 97 20 131/59 (83) 97 I/O 08/11/17 08/11/17 08/11/17 08/12/17 08/12/17 08/12/17 07:00 15:00 23:00 07:00 15:00 23:00 Intake Total 580 ml 50 ml 580 ml 590 ml Balance 580 ml 50 ml 580 ml 590 ml Intake Oral 580 ml 480 ml 240 ml IV Total 50 ml 100 ml 350 ml # Voids 3 4 3 # Bowel Movements 0 Result Diagram: 08/12/17 0617 08/11/17 0610 Imaging Last Impressions Foot MRI 08/11/17 0000 Signed Impressions: Service Date/Time: Friday, August 11, 2017 11:24 - CONCLUSION: 1. Nonspecific soft tissue swelling in the soft tissues along the dorsum of the mid right foot. 2. Mild degenerative arthritis involving the first metatarsal-phalangeal joint. 3. No evidence of a soft tissue abscess or osteomyelitis. David Garcia MD Tibia/Fibula X-Ray 08/09/17 1848 Signed Impressions: Service Date/Time: Wednesday, August 09, 2017 18:53 - CONCLUSION: 1. No acute bony abnormalities. Mild soft tissue swelling over the lateral malleolus. Kole Casper MD Foot X-Ray 08/09/171847 Signed Impressions: Service Date/Time: Wednesday, August 09, 2017 18:53 - CONCLUSION: 1. Soft tissue swelling on the dorsum of the foot. No acute bony abnormalities. 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 Kole Casper MD Chest X-Ray 08/09/171847 Signed Impressions: Service Date/Time: Wednesday, August 09, 2017 18:53 - CONCLUSION: No acute disease. Kole Casper MD Objective Remarks GENERAL: Well-developed, well-nourished patient in [facility]. SKIN: Warm and dry. No rash. Right foot with erythema and swelling and ecchymosis. No drainage HEAD: Normocephalic. Atraumatic. EYES: Pupils equal and round. No scleral icterus. No injection or drainage. ENT: No nasal bleeding or discharge. Mucous membranes pink and moist. NECK: Supple. Trachea midline. CARDIOVASCULAR: Regular rate and rhythm. S1, S2 noted. No murmur appreciated. RESPIRATORY: No accessory muscle use. Clear to auscultation. Breath sounds equal bilaterally. GASTROINTESTINAL: Abdomen soft, non-tender, nondistended. Normoactive bowel sounds x4. MUSCULOSKELETAL: No obvious deformities. Extremities without clubbing, cyanosis. Right lower foot with erythema, swelling and ecchymosis. NEUROLOGICAL: Awake and alert. No obvious cranial nerve deficits. Motor grossly within normal limits. 5/5 muscle strength in bilateral upper and lower extremities. Normal speech. PSYCHIATRIC: Appropriate mood and affect; insight and judgment normal. A/P Problem List: (1) Cellulitis of right foot ICD Code: L03.115 - Cellulitis of right lower limb Status: Acute Plan: Patient tripped and fell prior to presentation with subsequent right foot swelling, erythema and ecchymosis. There is also a small necrotic area to the dorsal aspect of her foot. No drainage or open area. Right foot x-ray reviewed showing soft tissue swelling on the dorsum of the foot. No acute bony abnormalities. 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 Tibia/fibula x-ray showing no acute bony abnormalities. Mild swelling in the soft tissue of the lateral malleolus. Blood cultures pending, follow growth. No growth 3 days. Afebrile overnight. No leukocytosis for now. UA negative. Chest x-ray reviewed showing no acute cardiopulmonary disease. Patient placed on Zosyn and vancomycin IV. Monitor for any signs of infection. Podiatry consulted, appreciate input recommendations. MRI showing nonspecific soft tissue swelling. No abscess or osteomyelitis. Plan for I&D in the morning. Pain control with [place] as needed for pain scale. Morphine IV as needed for breakthrough pain. (2) Hypertension ICD Code: I10 - Essential (primary) hypertension Plan: Continue home Norvasc. Monitor blood pressure trends. (3) History of CVA (cerebrovascular accident) ICD Code: Z86.73 - Personal history of transient ischemic attack (TIA), and cerebral infarction without residual deficits Plan: Continue on home Plavix. PT ordered and evaluated, appreciate input recommendations. DVT prophylaxis: SCDs. Lovenox. Nya Urbina August 12, 2017 11:30
[2017-08-12] MEDS ORDERED: MORPHINE SULFATE 4 MG/ML INJ IV PUSH PRN (16:15)
[2017-08-12] MEDS ORDERED: HEPARIN SODIUM - SQ 10,000 UNITS/ML VIAL SQ SCH (21:00)
--- NOTE | 2017-08-12 21:04 | PD.POD ---
Subjective Podiatric Problems Right foot infection Past Med/Surg/Social History Social History Smoking Status: Never Smoker Objective Vital Signs Vital Signs Date Time Temp Pulse Resp B/P (MAP) Pulse Ox O2 Delivery O2 Flow Rate FiO2 08/12/17 20:00 98.6 80 20 140/65 (90) 99 08/12/17 16:00 97.6 69 20 150/69 (96) 96 08/12/17 12:00 96.5 81 22 167/72 (103) 99 08/12/17 08:45 81 08/12/17 08:00 97.6 77 19 143/60 (87) 98 08/12/17 04:00 96.4 60 20 101/56 (71) 96 08/12/17 00:00 97.4 65 19 115/59 (77) 93 Coded Allergies: No Known Allergies (Verified Allergy, Unknown, 08/09/17) Other Results Last 72 hours Impressions Foot MRI 08/11/17 0000 Signed Impressions: Service Date/Time: Friday, August 11, 2017 11:24 - CONCLUSION: 1. Nonspecific soft tissue swelling in the soft tissues along the dorsum of the mid right foot. 2. Mild degenerative arthritis involving the first metatarsal-phalangeal joint. 3. No evidence of a soft tissue abscess or osteomyelitis. David Garcia MD Exam-Podiatry Remarks Right dorsal foot with continued edema and erythema from toes to anterior ankle across entire dorsal foot. Extreme tenderness to palpation about the eschar area dorsally with questionable fluctuance beneath. Unable to examine well due to severe pain. No crepitus. Patient relates reduced erythema and edema since yesterday. Assessment & Plan A/P Abscess/cellulitis right dorsal foot Plan to OR for I&D R foot with Dr Drummond, possibly tomorrow Dat Barnard DPM August 12, 2017 21:04
[2017-08-12] MEDS: ATORVASTATIN 40 MG TAB PO SCH (21:51)
[2017-08-12] MEDS: LATANOPROST 0.005% OPHT SOLN 2.5 ML BTL EACH EYE SCH (21:51)
[2017-08-12] MEDS: ACETAMINOPHEN 325 MG TAB PO PRN (21:59)
[2017-08-12] MEDS: ENOXAPARIN SODIUM 40 MG/0.4 ML SYRINGE SQ SCH (23:17)
[2017-08-12] MEDS: VANCOMYCIN INJ 1,100 MG in SODIUM CHLOR 0.9% 250 ML INJ 250 ML IV SCH (23:48)
[2017-08-13] VITALS: BP 128/61; PULSE 66; RESP 20; TEMP 97.2; O2SAT 94
[2017-08-13] MEDS: PIPERACIL-TAZO 3.375 GM PREMIX 50 ML IV SCH ×4 (05:35→21:19)
[2017-08-13 08:00] VITALS: BP 140/63; PULSE 75; RESP 20; TEMP 97.2; O2SAT 95
[2017-08-13] MEDS: ENALAPRIL MALEATE 10 MG TAB PO SCH (08:15)
[2017-08-13] MEDS: CLOPIDOGREL 75 MG TAB PO SCH (08:15)
[2017-08-13] MEDS: SODIUM CHLORIDE 0.9% FLUSH 10 ML FLUSH IV FLUSH SCH ×2 (08:16→19:42)
[2017-08-13 10:02] LABS: CREATININE 0.77 MG/DL (0.50-1.00)
--- NOTE | 2017-08-13 11:29 | HHI.PR ---
Subjective Remarks Follow-up right foot cellulitis. Patient seen and examined, lying in bed comfortably with friend at bedside. Patient states that pain is well controlled. Spoke to the soa integration developer today, does appear to be healing. Is not concerned for any abscess. Will watch overnight continue IV antibiotics, if improved will discharge tomorrow. Continue Renard wrap. Vital signs stable. Afebrile. No leukocytosis. Objective Vitals Vital Signs Date Time Temp Pulse Resp B/P (MAP) Pulse Ox O2 Delivery O2 Flow Rate FiO2 08/13/17 08:00 97.2 75 20 140/63 (88) 95 08/13/17 00:00 97.2 66 20 128/61 (83) 94 08/12/17 20:00 98.6 80 20 140/65 (90) 99 08/12/17 16:00 97.6 69 20 150/69 (96) 96 08/12/17 12:00 96.5 81 22 167/72 (103) 99 I/O 08/12/17 08/12/17 08/12/17 08/13/17 08/13/17 08/13/17 06:59 14:59 22:59 06:59 14:59 22:59 Intake Total 590 ml 600 ml 250 ml 0 ml Balance 590 ml 600 ml 250 ml 0 ml Intake Oral 240 ml 600 ml 0 ml 0 ml IV Total 350 ml 250 ml # Voids 3 3 4 # Bowel Movements 0 2 2 Result Diagram: 08/12/17 0617 08/13/17 0850 Imaging Last Impressions Foot MRI 08/11/17 0000 Signed Impressions: Service Date/Time: Friday, August 11, 2017 11:24 - CONCLUSION: 1. Nonspecific soft tissue swelling in the soft tissues along the dorsum of the mid right foot. 2. Mild degenerative arthritis involving the first metatarsal-phalangeal joint. 3. No evidence of a soft tissue abscess or osteomyelitis. David Garcia MD Tibia/Fibula X-Ray 08/09/171847 Signed Impressions: Service Date/Time: Wednesday, August 09, 2017 18:53 - CONCLUSION: 1. No acute bony abnormalities. Mild soft tissue swelling over the lateral malleolus. Kole Casper MD Foot X-Ray 08/09/171847 Signed Impressions: Service Date/Time: Wednesday, August 09, 2017 18:53 - CONCLUSION: 1. Soft tissue swelling on the dorsum of the foot. No acute bony abnormalities. 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 Kole Casper MD Chest X-Ray 08/09/17 3483 Signed Impressions: Service Date/Time: Wednesday, August 09, 2017 18:53 - CONCLUSION: No acute disease. Kole Casper MD Objective Remarks GENERAL: Well-developed, well-nourished patient in [facility]. SKIN: Warm and dry. No rash. Right foot with erythema and swelling and ecchymosis. Renard wrap in place. No drainage HEAD: Normocephalic. Atraumatic. EYES: Pupils equal and round. No scleral icterus. No injection or drainage. ENT: No nasal bleeding or discharge. Mucous membranes pink and moist. NECK: Supple. Trachea midline. CARDIOVASCULAR: Regular rate and rhythm. S1, S2 noted. No murmur appreciated. RESPIRATORY: No accessory muscle use. Clear to auscultation. Breath sounds equal bilaterally. GASTROINTESTINAL: Abdomen soft, non-tender, nondistended. Normoactive bowel sounds x4. MUSCULOSKELETAL: No obvious deformities. Extremities without clubbing, cyanosis. Right lower foot with erythema, swelling and ecchymosis. Appears to be improving. NEUROLOGICAL: Awake and alert. No obvious cranial nerve deficits. Motor grossly within normal limits. 5/5 muscle strength in bilateral upper and lower extremities. Normal speech. PSYCHIATRIC: Appropriate mood and affect; insight and judgment normal. A/P Problem List: (1) Cellulitis of right foot ICD Code: L03.115 - Cellulitis of right lower limb Status: Acute Plan: Patient tripped and fell prior to presentation with subsequent right foot swelling, erythema and ecchymosis. There is also a small necrotic area to the dorsal aspect of her foot. No drainage or open area. Right foot x-ray reviewed showing soft tissue swelling on the dorsum of the foot. No acute bony abnormalities. 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 Tibia/fibula x-ray showing no acute bony abnormalities. Mild swelling in the soft tissue of the lateral malleolus. Blood cultures pending, follow growth. No growth. Afebrile overnight. No leukocytosis. UA negative. Chest x-ray reviewed showing no acute cardiopulmonary disease. Patient placed on Zosyn and vancomycin IV. Continue. Monitor for any signs of infection. Podiatry consulted, appreciate input recommendations. MRI showing nonspecific soft tissue swelling. No abscess or osteomyelitis. Plan to monitor overnight, most likely discharge in a.m. Continue IV antibiotics. Appears to be improving. Pain control with [place] as needed for pain scale. Morphine IV as needed for breakthrough pain. (2) Hypertension ICD Code: I10 - Essential (primary) hypertension Plan: Continue home Norvasc. Monitor blood pressure trends. (3) History of CVA (cerebrovascular accident) ICD Code: Z86.73 - Personal history of transient ischemic attack (TIA), and cerebral infarction without residual deficits Plan: Continue on home Plavix. PT ordered and evaluated, appreciate input recommendations. DVT prophylaxis: SCDs. Lovenox. Nya Urbina August 13, 2017 11:29
[2017-08-13 12:00] VITALS: BP 147/65; PULSE 72; RESP 20; TEMP 97.1; O2SAT 94
[2017-08-13 16:00] VITALS: BP 139/62; PULSE 80; RESP 18; TEMP 96.5; O2SAT 96
--- NOTE | 2017-08-13 19:49 | HHI.PR ---
Subjective Remarks Patient seen bedside. Denies nausea vomiting fevers or chills. States she feels that has been decreased pain and redness to right foot. Objective Vital Signs Date Time Temp Pulse Resp B/P (MAP) Pulse Ox O2 Delivery O2 Flow Rate FiO2 08/13/17 16:00 96.5 80 18 139/62 (87) 96 08/13/17 12:00 97.1 72 20 147/65 (92) 94 08/13/17 08:00 97.2 75 20 140/63 (88) 95 08/13/17 00:00 97.2 66 20 128/61 (83) 94 08/12/17 20:00 98.6 80 20 140/65 (90) 99 I/O 08/12/17 08/12/17 08/12/17 08/13/17 08/13/17 08/13/17 07:00 15:00 23:00 07:00 15:00 23:00 Intake Total 590 ml 600 ml 250 ml 50 ml 530 ml Balance 590 ml 600 ml 250 ml 50 ml 530 ml Intake Oral 240 ml 600 ml 0 ml 0 ml 480 ml IV Total 350 ml 250 ml 50 ml 50 ml # Voids 3 3 4 2 # Bowel Movements 0 2 2 1 Result Diagram: 08/12/17 0617 08/13/17 0850 Imaging Last Impressions Foot MRI 08/11/17 0000 Signed Impressions: Service Date/Time: Friday, August 11, 2017 11:24 - CONCLUSION: 1. Nonspecific soft tissue swelling in the soft tissues along the dorsum of the mid right foot. 2. Mild degenerative arthritis involving the first metatarsal-phalangeal joint. 3. No evidence of a soft tissue abscess or osteomyelitis. David Garcia MD Tibia/Fibula X-Ray [id number]/09/[id number] Signed Impressions: Service Date/Time: Wednesday, August 09, 2017 18:53 - CONCLUSION: 1. No acute bony abnormalities. Mild soft tissue swelling over the lateral malleolus. Kole Casper MD Foot X-Ray [id number]/[id number] Signed Impressions: Service Date/Time: Wednesday, August 09, 2017 18:53 - CONCLUSION: 1. Soft tissue swelling on the dorsum of the foot. No acute bony abnormalities. 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 Kole Casper MD Chest X-Ray 08/09/17 [id number] Signed Impressions: Service Date/Time: Wednesday, August 09, 2017 18:53 - CONCLUSION: No acute disease. Kole Casper MD Other Results Microbiology Date/Time Source Procedure Growth Status 08/09/17 19:04 Blood Peripheral Aerobic Blood Culture - Preliminary NO GROWTH IN 4 DAYS Resulted 08/09/17 19:04 Blood Peripheral Anaerobic Blood Culture - Preliminary NO GROWTH IN 4 DAYS Resulted Objective Remarks Lower extremity physical exam: Vascular: Dorsalis pedis 2/4, posterior tibial 2/4. Capillary refill time within normal limits to digits 5 bilateral foot. Edema present right foot Neuro: Gross sensation intact to bilateral lower extremity. Pinpoint sensation intact. No hyperalgesia noted to bilateral lower extremity Dermatology: Normal temperature and turgor to bilateral lower extremity. Edema and erythema to right foot with recession of erythema noted. Musculoskeletal: Tender to palpation to right foot. Medications and IVs Current Medications Medications (Trade) Dose Ordered Sig/Deana Route Start Time Stop Time Status Last Admin (NS Flush) 2 ml UNSCH PRN IV FLUSH 08/09/17 22:45 08/12/17 05:21 (NS Flush) 2 ml BID IV FLUSH 08/10/17 09:00 08/13/17 08:16 (Tylenol) 650 mg Q4H PRN PO 08/09/17 22:45 08/12/17 21:59 (Zofran Inj) 4 mg Q6H PRN IVP 08/09/17 22:45 (Lovenox Inj) 40 mg Q24H SQ 08/09/17 22:45 08/12/17 23:17 (Narcan Inj) 0.4 mg UNSCH PRN IV PUSH 08/09/17 22:45 (Milk Of Magnesia Liq) 30 ml Q12H PRN PO 08/09/17 22:45 (Senokot) 17.2 mg Q12H PRN PO 08/09/17 22:45 (Dulcolax Supp) 10 mg DAILY PRN RECTAL 08/09/17 22:45 (Lactulose Liq) 30 ml DAILY PRN PO 08/09/17 22:45 (Lipitor) 40 mg HS PO 08/10/17 21:00 08/12/17 21:51 (Plavix) 75 mg DAILY PO 08/10/17 09:00 08/13/17 08:15 (Vasotec) 20 mg DAILY PO 08/10/17 09:00 08/13/17 08:15 (Xalatan 0.005% Opth Soln) 1 drop HS EACH EYE 08/09/17 22:45 08/12/17 21:51 (Norvasc) 10 mg DAILY PO 08/10/17 09:00 08/13/17 08:15 Piperacillin Sod/ Tazobactam Sod 50 ml @ 100 mls/hr Q6H IV 08/09/17 22:45 08/13/17 17:23 Pharmacy Profile Note 0 ml @ 0 mls/hr UNSCH OTHER 08/09/17 22:45 ([place] 5-325 Mg) 1 tab Q4H PRN PO 08/12/17 09:30 ([place] 5-325 Mg) 2 tab Q4H PRN PO 08/12/17 09:30 Vancomycin HCl 1100 mg/Sodium Chloride 261 ml @ 250 mls/hr Q24H IV 08/13/17 00:00 08/12/17 23:48 ([facility] [place] [facility] Ordered Lab Info) SPECIFIC LAB TO BE DRAWN:VANCOMY... ONCE ONCE .XX 08/15/17 23:45 08/15/17 23:46 (Morphine Inj) 2 mg Q4H PRN IV PUSH 08/12/17 16:15 Assessment and Plan Assessment and Plan 82-year-old female status post right injury right foot hematoma formation Patient evaluated and examined all questions answered Patient states she is feeling better No abscess noted on MRI No fluctuance noted to the dorsal aspect of right foot Applied Pinto compression double layer compression to right lower extremity We will evaluate patient in the a.m. for DC, anticipate improvement without surgical intervention as right foot has improved overnight Discussed with Nya Chang DPNoé August 13, 2017 19:49
[2017-08-13 20:00] VITALS: BP 129/62; PULSE 76; RESP 20; TEMP 97.5; O2SAT 97
[2017-08-13] MEDS: LATANOPROST 0.005% OPHT SOLN 2.5 ML BTL EACH EYE SCH (21:19)
[2017-08-13] MEDS: ATORVASTATIN 40 MG TAB PO SCH (21:19)
[2017-08-13] MEDS: ENOXAPARIN SODIUM 40 MG/0.4 ML SYRINGE SQ SCH (21:20)
[2017-08-14] VITALS: BP 123/58; PULSE 70; RESP 20; TEMP 96.8; O2SAT 95
[2017-08-14] MEDS: VANCOMYCIN INJ 1,100 MG in SODIUM CHLOR 0.9% 250 ML INJ 250 ML IV SCH (00:13)
[2017-08-14] MEDS: PIPERACIL-TAZO 3.375 GM PREMIX 50 ML IV SCH ×2 (05:25→10:35)
[2017-08-14 08:00] VITALS: BP 124/79; PULSE 69; RESP 18; TEMP 97.9; O2SAT 99
[2017-08-14] MEDS: CLOPIDOGREL 75 MG TAB PO SCH (08:40)
[2017-08-14] MEDS: ENALAPRIL MALEATE 10 MG TAB PO SCH (08:40)
[2017-08-14] MEDS: SODIUM CHLORIDE 0.9% FLUSH 10 ML FLUSH IV FLUSH SCH (08:41)
--- NOTE | 2017-08-14 09:25 | HHI.PR ---
Subjective Remarks Patient seen bedside. Denies nausea vomiting fevers or chills. States she feels that has been decreased pain and redness to right foot. Patient states she feels throbbing when there is a bandage but she has noticed an improvement. Objective Vital Signs Date Time Temp Pulse Resp B/P (MAP) Pulse Ox O2 Delivery O2 Flow Rate FiO2 08/14/17 08:00 97.9 69 18 124/79 (94) 99 08/14/17 00:00 96.8 70 20 123/58 (79) 95 08/13/17 20:00 97.5 76 20 129/62 (84) 97 08/13/17 16:00 96.5 80 18 139/62 (87) 96 08/13/17 12:00 97.1 72 20 147/65 (92) 94 I/O 08/13/17 08/13/17 08/13/17 08/14/17 08/14/17 08/14/17 07:00 15:00 23:00 07:00 15:00 23:00 Intake Total 250 ml 50 ml 530 ml 0 ml Balance 250 ml 50 ml 530 ml 0 ml Intake Oral 0 ml 0 ml 480 ml 0 ml IV Total 250 ml 50 ml 50 ml # Voids 4 2 3 # Bowel Movements 2 1 Result Diagram: 08/12/17 0617 08/13/17 0850 Imaging Last Impressions Foot MRI 08/11/17 0000 Signed Impressions: Service Date/Time: Friday, August 11, 2017 11:24 - CONCLUSION: 1. Nonspecific soft tissue swelling in the soft tissues along the dorsum of the mid right foot. 2. Mild degenerative arthritis involving the first metatarsal-phalangeal joint. 3. No evidence of a soft tissue abscess or osteomyelitis. David Garcia MD Tibia/Fibula X-Ray [id number]/09/[id number] Signed Impressions: Service Date/Time: Wednesday, August 09, 2017 18:53 - CONCLUSION: 1. No acute bony abnormalities. Mild soft tissue swelling over the lateral malleolus. Kole Casper MD Foot X-Ray [id number]/09/[id number] Signed Impressions: Service Date/Time: Wednesday, August 09, 2017 18:53 - CONCLUSION: 1. Soft tissue swelling on the dorsum of the foot. No acute bony abnormalities. 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 Kole Casper MD Chest X-Ray 08/09/17 1848 Signed Impressions: Service Date/Time: Wednesday, August 09, 2017 18:53 - CONCLUSION: No acute disease. Kole Casper MD Other Results Microbiology Date/Time Source Procedure Growth Status 08/09/17 19:04 Blood Peripheral Aerobic Blood Culture - Preliminary NO GROWTH IN 4 DAYS Resulted 08/09/17 19:04 Blood Peripheral Anaerobic Blood Culture - Preliminary NO GROWTH IN 4 DAYS Resulted Objective Remarks Lower extremity physical exam: Vascular: Dorsalis pedis 2/4, posterior tibial 2/4. Capillary refill time within normal limits to digits 5 bilateral foot. Edema present right foot, improvement noted with skin lines present. +2 pitting edema noted to forefoot. Neuro: Gross sensation intact to bilateral lower extremity. Pinpoint sensation intact. No hyperalgesia noted to bilateral lower extremity. Dermatology: Normal temperature and turgor to bilateral lower extremity. Edema and erythema to right foot with recession of erythema noted. No fluctuance noted to dorsum of foot at area of eschar. Eschar noted to dorsal aspect of right no drainage upon compression, stable in nature. Musculoskeletal: Tender to palpation to right foot, improvement noted. Medications and IVs Current Medications Medications (Trade) Dose Ordered Sig/Deana Route Start Time Stop Time Status Last Admin (NS Flush) 2 ml UNSCH PRN IV FLUSH 08/09/17 22:45 08/12/17 05:21 (NS Flush) 2 ml BID IV FLUSH 08/10/17 09:00 08/14/17 08:41 (Tylenol) 650 mg Q4H PRN PO 08/09/17 22:45 08/12/17 21:59 (Zofran Inj) 4 mg Q6H PRN IVP 08/09/17 22:45 (Lovenox Inj) 40 mg Q24H SQ 08/09/17 22:45 08/13/17 21:20 (Narcan Inj) 0.4 mg UNSCH PRN IV PUSH 08/09/17 22:45 (Milk Of Magnesia Liq) 30 ml Q12H PRN PO 08/09/17 22:45 (Senokot) 17.2 mg Q12H PRN PO 08/09/17 22:45 (Dulcolax Supp) 10 mg DAILY PRN RECTAL 08/09/17 22:45 (Lactulose Liq) 30 ml DAILY PRN PO 08/09/17 22:45 (Lipitor) 40 mg HS PO 08/10/17 21:00 08/13/17 21:19 (Plavix) 75 mg DAILY PO 08/10/17 09:00 08/14/17 08:40 (Vasotec) 20 mg DAILY PO 08/10/17 09:00 08/14/17 08:40 (Xalatan 0.005% Opth Soln) 1 drop HS EACH EYE 08/09/17 22:45 08/13/17 21:19 (Norvasc) 10 mg DAILY PO 08/10/17 09:00 08/14/17 08:40 Piperacillin Sod/ Tazobactam Sod 50 ml @ 100 mls/hr Q6H IV 08/09/17 22:45 08/14/17 05:25 Pharmacy Profile Note 0 ml @ 0 mls/hr UNSCH OTHER 08/09/17 22:45 ([place] 5-325 Mg) 1 tab Q4H PRN PO 08/12/17 09:30 08/14/17 08:40 ([place] 5-325 Mg) 2 tab Q4H PRN PO 08/12/17 09:30 08/13/17 21:28 Vancomycin HCl 1100 mg/Sodium Chloride 261 ml @ 250 mls/hr Q24H IV 08/13/17 00:00 08/14/17 00:13 ([facility] Ordered Lab Info) SPECIFIC LAB TO BE DRAWN:VANCOMY... ONCE ONCE .XX 08/15/17 23:45 08/15/17 23:46 (Morphine Inj) 2 mg Q4H PRN IV PUSH 08/12/17 16:15 Assessment and Plan Assessment and Plan 82-year-old female status post injury right foot with hematoma formation Patient evaluated and examined all questions answered Evaluated this am, Pinto compression splint removed and there was noted to improvement in erythema and edema Patient states she is feeling better No abscess noted on MRI No fluctuance noted to the dorsal aspect of right foot Applied Pinto compression double layer compression to right lower extremity Patient to follow up in office on Wednesday Discussed with Nya Chang DPM August 14, 2017 09:25
[2017-08-14 09:40] VITALS: RESP 18
[2017-08-14] MEDS ORDERED: CEPH-460 PO (11:37)
[2017-08-14] MEDS ORDERED: HYDR-3516 PO (11:37)
--- NOTE | 2017-08-14 11:37 | HHI.DCPOC ---
Discharge Care Plan Diagnosis: (1) Cellulitis of right foot (2) Failure of outpatient treatment (3) Hypertension Goals to Promote Your Health * To prevent worsening of your condition and complications * To maintain your health at the optimal level Directions to Meet Your Goals Take your medications as prescribed Follow your dietary instruction Follow activity as directed Keep your appointments as scheduled Take your immunizations and boosters as scheduled If your symptoms worsen call your PCP, if no PCP go to Urgent Care Center or Emergency Room Smoking is Dangerous to Your Health. Avoid second hand smoke Call the 24-hour hour crisis hotline for domestic abuse at Nya Urbina August 14, 2017 11:37
--- NOTE | 2017-08-14 11:37 | HHI.DS ---
Discharge Summary Admission Date August 11, 2017 at 11:14 Discharge Date: August 14, 2017 Admitting Diagnosis Right foot cellulitis. Failure of outpatient treatment. (1) Cellulitis of right foot ICD Code: L03.115 - Cellulitis of right lower limb Status: Acute (2) Hypertension ICD Code: I10 - Essential (primary) hypertension (3) History of CVA (cerebrovascular accident) ICD Code: Z86.73 - Personal history of transient ischemic attack (TIA), and cerebral infarction without residual deficits Procedures See below. Brief History - From Admission This is an 82-year-old female patient with a known medical history of CVA, hypertension and hyperlipidemia who presented to the ED with complaints of right lower extremity erythema and swelling. Patient states that 4 days ago she tripped and fell hitting the dorsal aspect of her right foot. Over the course of the last 4 days she went to the urgent care, had x-rays done with unknown results and placed on antibiotics, cephalexin 500 mg twice a day. Patient states she took 2 days worth of antibiotics and the swelling and erythema and just became worse with worsening pain which led to her presentation. Patient denies any recent headache, shortness of breath, abdominal pain, nausea, vomiting or diarrhea or dysuria. She does admit to subjective fevers and chills over the last couple days. Pain is rated a 7 out of 10 at its worst, with worsening when weightbearing. Denies any history of diabetes. PCP is Dr. Spear. Last seen 1 month ago with no changes in medicines. CBC/BMP: 08/12/17 0617 08/13/17 0850 Significant Findings Laboratory Tests Test 08/12/17 06:17 08/13/17 08:50 Red Blood Count 3.84 MIL/MM3 (4.00-5.30) Hemoglobin 11.4 GM/DL (11.6-15.3) Hematocrit 33.6 % (35.0-46.0) Monocytes (%) (Auto) 9.2 % (0.0-8.0) Basophils (%) (Auto) 2.2 % (0.0-2.0) Estimat Glomerular Filtration Rate 71 ML/MIN (>89) Imaging Last Impressions Foot MRI 08/11/17 0000 Signed Impressions: Service Date/Time: Friday, August 11, 2017 11:24 - CONCLUSION: 1. Nonspecific soft tissue swelling in the soft tissues along the dorsum of the mid right foot. 2. Mild degenerative arthritis involving the first metatarsal-phalangeal joint. 3. No evidence of a soft tissue abscess or osteomyelitis. David Garcia MD Tibia/Fibula X-Ray 08/09/171847 Signed Impressions: Service Date/Time: Wednesday, August 09, 2017 18:53 - CONCLUSION: 1. No acute bony abnormalities. Mild soft tissue swelling over the lateral malleolus. Kole Casper MD Foot X-Ray 08/09/171847 Signed Impressions: Service Date/Time: Wednesday, August 09, 2017 18:53 - CONCLUSION: 1. Soft tissue swelling on the dorsum of the foot. No acute bony abnormalities. 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 Kole Casper MD Chest X-Ray 08/09/171847 Signed Impressions: Service Date/Time: Wednesday, August 09, 2017 18:53 - CONCLUSION: No acute disease. Kole Casper MD PE at Discharge GENERAL: Well-developed, well-nourished patient in [facility]. SKIN: Warm and dry. No rash. Right foot with erythema and swelling and ecchymosis. Renard wrap in place. No drainage HEAD: Normocephalic. Atraumatic. EYES: Pupils equal and round. No scleral icterus. No injection or drainage. ENT: No nasal bleeding or discharge. Mucous membranes pink and moist. NECK: Supple. Trachea midline. CARDIOVASCULAR: Regular rate and rhythm. S1, S2 noted. No murmur appreciated. RESPIRATORY: No accessory muscle use. Clear to auscultation. Breath sounds equal bilaterally. GASTROINTESTINAL: Abdomen soft, non-tender, nondistended. Normoactive bowel sounds x4. MUSCULOSKELETAL: No obvious deformities. Extremities without clubbing, cyanosis. Right lower foot with erythema, swelling and ecchymosis. Appears to be improving. NEUROLOGICAL: Awake and alert. No obvious cranial nerve deficits. Motor grossly within normal limits. 5/5 muscle strength in bilateral upper and lower extremities. Normal speech. PSYCHIATRIC: Appropriate mood and affect; insight and judgment normal. Pt update on day of discharge Follow-up right foot cellulitis. 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 Dressing removed and wound assessed, improving. Okay to discharge home from podiatry medical standpoint. Will give p.o. antibiotics and pain medications upon DC. Hospital Course Patient tripped and fell prior to presentation with subsequent right foot swelling, erythema and ecchymosis. There is also a small necrotic area to the dorsal aspect of her foot. No drainage or open area. Right foot x-ray reviewed showing soft tissue swelling on the dorsum of the foot. No acute bony abnormalities. 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 Tibia/fibula x-ray showing no acute bony abnormalities. Mild swelling in the soft tissue of the lateral malleolus. Blood cultures pending, follow growth. No growth. Afebrile. No leukocytosis. UA negative. Chest x-ray reviewed showing no acute cardiopulmonary disease. Patient placed on Zosyn and vancomycin IV. Will DC on PO antibiotics. Podiatry consulted, appreciate input recommendations. MRI showing nonspecific soft tissue swelling. No abscess or osteomyelitis. Infection improving. Pain improving. Pain control with [place] as needed for pain scale. Will DC with 2 days of narcotics. Follow up with podiatry in office. Pt Condition on Discharge: Stable Discharge Disposition: Discharge Home Discharge Time: > 30 minutes Discharge Instructions DIET: Follow Instructions for: Heart Healthy Diet Speech Therapy-Diet Recommends: Regular Activities you can perform: Regular-No Restrictions Follow up Referrals: PCP Follow-up - 1 Week Podiatry @ [facility] with Nya Davis DPM New Medications: Cephalexin (Keflex) 500 Mg Capsule 500 MG PO BID for Infection for 7 Days, #14 CAP 0 Refills Hydrocodone/Acetaminophen (Hydrocodone-Acetamin 5-325 mg) 5 Mg-325 Mg Tablet 1 TAB PO Q6HR PRN for pain 1-5 for 2 Days, #8 TAB Continued Medications: Atorvastatin (Atorvastatin) 40 Mg Tab 40 MG PO HS for Cholesterol Management, #30 TAB 0 Refills Clopidogrel (Plavix) 75 Mg Tab 75 MG PO DAILY for Blood Clot Prevention, #30 TAB 0 Refills Enalapril (Enalapril) 20 Mg Tab 20 MG PO DAILY, #30 TAB 0 Refills Felodipine ER (Felodipine ER) 10 mg Yumiko 10 MG PO DAILY for Blood Pressure Management, #30 TAB 0 Refills Latanoprost Opth Drops (Latanoprost Opth Drops) 0.005% Drops 1 DROP EACH EYE HS for Glaucoma, #2.5 ML 0 Refills Refrigerate until opened. Discontinued Medications: Cephalexin (Cephalexin) 500 Mg Cap 500 MG PO Q12H for Infection, CAP 0 Refills Nya Urbina August 14, 2017 11:37
[2017-08-15] MEDS ORDERED: VANCOMYCIN TROUGH ONE (23:45)
== END 2017-08-14 12:41 | disposition home or self-care (01) | DRG 603 ==
LOC: PHED 18:19 → PHEDA 22:16 → UNDOADMIN 22:16 → PHEDA 22:34 → INTOOBSV 22:34 → PH3A 23:30 → OBSVTOIN 08-11 11:14
PROVIDERS: ADMIT Hospitalist; ATTEND Hospitalist
DX: L03.115 Cellulitis of right lower limb (principal); E11.9 Type 2 diabetes mellitus without complications; I10 Essential (primary) hypertension; E78.5 Hyperlipidemia, unspecified; M19.042 Primary osteoarthritis, left hand; M19.041 Primary osteoarthritis, right hand; M19.071 Primary osteoarthritis, right ankle and foot; W01.0XXA Fall on same level from slipping, tripping and stumbling without subsequent striking against object, initial encounter; Z85.828 Personal history of other malignant neoplasm of skin; Z86.73 Personal history of transient ischemic attack (TIA), and cerebral infarction without residual deficits
CPT/HCPCS: 71045; 73590; 73630; 73720; 80048; 80053; 80202; 81001; 82565; 85025; 85610; 85730; 87040; 94150; 99285; A9579; G8987-GP; G8988-GP; J1650; J2543; J3370; J7050

== ENCOUNTER 2017-09-27 18:39 | Observation (INO) | payer MEDICARE, OTHER ==
[~2017-09-27] VITALS: Ht 160 cm; Wt 58.1 kg
[~2017-09-27 18:39] MED LIST changes: +ATOR40TA16 PO; +CEPH-460 PO; -CLOP75 PO; -FISHOIL PO; +HYDR-3516 PO; +LATA0.002 EACH EYE; -OS-CTAB3 PO; +PLAV75TA29 PO; -SIMV40TA PO; -TAB-TAB PO
[2017-09-27 18:47] VITALS: BP 160/68; PULSE 87; RESP 16; TEMP 98.6; O2SAT 97
[2017-09-27] MEDS ORDERED: SODIUM CHLORIDE 0.9% FLUSH 10 ML FLUSH IVF PRN (19:00)
[2017-09-27 19:12] VITALS: BP_SYST 160; BP_SYST 165; BP_DIAS 62; PULSE 81; RESP 16; O2SAT 99
[2017-09-27 19:13] LABS: AUTOMATED NEUTROPHIL # 3.8 TH/MM3 (1.8-7.7); BASOPHIL # 0.1 TH/MM3 (0-0.2); BASOPHIL % 1.3 % (0.0-2.0); EOSINOPHIL # 0.5 TH/MM3 (0-0.4); EOSINOPHIL % 5.1 % (0.0-4.0); HEMATOCRIT 37.8 % (35.0-46.0); HEMOGLOBIN 12.6 GM/DL (11.6-15.3); LYMPH % 46.3 % (9.0-44.0); LYMPHOCYTE # 4.6 TH/MM3 (1.0-4.8); MEAN CELL VOLUME 88.6 FL (80.0-100.0); MEAN CORPUSCULAR HEMOGLOBIN 29.6 PG (27.0-34.0); MEAN CORPUSCULAR HGB CONC 33.5 % (32.0-36.0); MEAN PLATELET VOLUME 8.1 FL (7.0-11.0); MONO % 8.6 % (0.0-8.0); MONOCYTE # 0.9 TH/MM3 (0-0.9); NEUT % 38.7 % (16.0-70.0); PLATELET COUNT 258 TH/MM3 (150-450); RED BLOOD COUNT 4.26 MIL/MM3 (4.00-5.30); RED CELL DISTRIBUTION WIDTH 13.3 % (11.6-17.2); WHITE BLOOD COUNT 9.9 TH/MM3 (4.0-11.0)
[2017-09-27 19:21] LABS: CHLORIDE 105 MEQ/L (98-107); SODIUM (NA) 136 MEQ/L (136-145)
[2017-09-27 19:24] LABS: CALCIUM 9.3 MG/DL (8.5-10.1)
[2017-09-27 19:25] LABS: ALBUMIN 4.5 GM/DL (3.4-5.0); BICARBONATE 22.5 MEQ/L (21.0-32.0); BLOOD UREA NITROGEN 24 MG/DL (7-18); GLUCOSE,RANDOM 95 MG/DL (74-106)
[2017-09-27 19:28] LABS: ALT (GPT) 33 U/L (10-53); AST (GOT) 28 U/L (15-37); CREATININE 0.77 MG/DL (0.50-1.00); GLOMERULAR FILTRATION RATE 71 ML/MIN (>89); PROTHROMBIN TIME - PATIENT 10.5 SEC (9.8-11.6)
[2017-09-27 19:29] LABS: TOTAL BILIRUBIN ADULT 0.6 MG/DL (0.2-1.0); TOTAL PROTEIN 8.3 GM/DL (6.4-8.2)
[2017-09-27 19:31] LABS: ALKALINE PHOSPHATASE 107 U/L (45-117)
--- NOTE | 2017-09-27 19:40 | PD ---
HPI Chief Complaint: Neuro Symptoms/ Deficits Time Seen by Provider: 18:49 Travel History International Travel<30 days: No Contact w/Intl Traveler<30days: No Traveled to known affect area: No History of Present Illness HPI This is an 82-year-old female who reportedly has history of a stroke with some dexterity difficulties in her left hand persistent, who presents to the emergency department with confusion and memory trouble. She was last seen normal at 830 this morning by her daughter. When her daughter came home this evening her mom kept asking her questions over and over, not remembering what she did earlier today, confused, constant, severe. She is not having any difficulty walking or speaking. She denies any headache. She is on Plavix. [facility] Past Medical History Hx Anticoagulant Therapy: Yes (PLAVIX) Arthritis: Yes (HANDS) Cancer: Yes (SKIN) Cardiovascular Problems: Yes High Cholesterol: Yes Congestive Heart Failure: No Cerebrovascular Accident: Yes (2011) Diabetes: No (PT DENIES) Diminished Hearing: No Endocrine: Yes Gastrointestinal Disorders: No Glaucoma: Yes Genitourinary: Yes (RETENTION/HESITENCY) Hypertension: Yes Immune Disorder: No Implanted Vascular Access Dvce: No Musculoskeletal: Yes Neurologic: Yes Psychiatric: No Reproductive: No Respiratory: No ?: Not Past Surgical History Gynecologic Surgery: Yes (HYSTERECTOMY) Hysterectomy: Yes Other Surgery: Yes Social History Alcohol Use: Yes (wine couple times a week) Tobacco Use: No Substance Use: No Allergies-Medications (Allergen,Severity, Reaction): Coded Allergies: No Known Allergies (Verified Allergy, Unknown, 08/09/17) Reported Meds & Prescriptions Reported Meds & Active Scripts Active Reported Latanoprost Opth Drops (Latanoprost) 0.005% Drops 1 Drop EACH EYE HS Refrigerate until opened. Atorvastatin (Atorvastatin Calcium) 40 Mg Tab 40 Mg PO HS Felodipine ER (Felodipine) 10 mg Yumiko 10 Mg PO DAILY Enalapril (Enalapril Maleate) 20 Mg Tab 20 Mg PO DAILY Plavix (Clopidogrel Bisulfate) 75 Mg Tab 75 Mg PO DAILY Review of Systems Except as stated in HPI: all other systems reviewed are Neg Physical Exam Narrative GENERAL:Well appearing, no acute distress SKIN: Focused skin assessment warm and dry. HEAD: Atraumatic. Normocephalic. EYES: Pupils equal and round. No injection or drainage. ENT: Moist mucous membranes NECK: Trachea midline. CARDIOVASCULAR: Regular rate and rhythm. No murmur appreciated. RESPIRATORY: Clear to auscultation. Breath sounds equal bilaterally. GASTROINTESTINAL: Abdomen soft, non-tender, nondistended. MUSCULOSKELETAL: No obvious deformities. NEUROLOGICAL: Repetitive questioning, asking over and over where she is and how she got here. Awake and alert. No obvious cranial nerve deficits. No dysarthria or aphasia. No upper or lower extremity drift. No upper extremity ataxia. Visual vallejo intact. Data Data Last Documented VS Vital Signs Date Time Temp Pulse Resp B/P (MAP) Pulse Ox O2 Delivery O2 Flow Rate FiO2 09/27/17 20:00 89 174/76 (108) 99 Room Air 09/27/17 19:15 16 09/27/17 18:47 98.6 Orders Orders Prothrombin Time / Inr (Pt) (09/27/17 18:49) Act Partial Throm Time (Ptt) (09/27/17 18:49) Complete Blood Count With Diff (09/27/17 18:49) Comprehensive Metabolic Panel (09/27/17 18:49) Ct Brain W/O Iv Contrast(Rout) (09/27/17 18:49) Ecg Monitoring (09/27/17 18:49) Iv Access Insert/Monitor (09/27/17 18:49) Oximetry (09/27/17 18:49) Sodium Chloride 0.9% Flush (Ns Flush) (09/27/17 19:00) Electrocardiogram (09/27/17 ) Labs Laboratory Tests Test 09/27/17 19:00 White Blood Count 9.9 TH/MM3 Red Blood Count 4.26 MIL/MM3 Hemoglobin 12.6 GM/DL Hematocrit 37.8 % Mean Corpuscular Volume 88.6 FL Mean Corpuscular Hemoglobin 29.6 PG Mean Corpuscular Hemoglobin Concent 33.5 % Red Cell Distribution Width 13.3 % Platelet Count 258 TH/MM3 Mean Platelet Volume 8.1 FL Neutrophils (%) (Auto) 38.7 % Lymphocytes (%) (Auto) 46.3 % Monocytes (%) (Auto) 8.6 % Eosinophils (%) (Auto) 5.1 % Basophils (%) (Auto) 1.3 % Neutrophils # (Auto) 3.8 TH/MM3 Lymphocytes # (Auto) 4.6 TH/MM3 Monocytes # (Auto) 0.9 TH/MM3 Eosinophils # (Auto) 0.5 TH/MM3 Basophils # (Auto) 0.1 TH/MM3 CBC Comment DIFF FINAL Differential Comment Prothrombin Time 10.5 SEC Prothromb Time International Ratio 1.0 RATIO Activated Partial Thromboplast Time 26.0 SEC Blood Urea Nitrogen 24 MG/DL Creatinine 0.77 MG/DL Random Glucose 95 MG/DL Total Protein 8.3 GM/DL Albumin 4.5 GM/DL Calcium Level 9.3 MG/DL Alkaline Phosphatase 107 U/L Aspartate Amino Transf (AST/SGOT) 28 U/L Alanine Aminotransferase (ALT/SGPT) 33 U/L Total Bilirubin 0.6 MG/DL Sodium Level 136 MEQ/L Potassium Level 3.6 MEQ/L Chloride Level 105 MEQ/L Carbon Dioxide Level 22.5 MEQ/L Anion Gap 9 MEQ/L Estimat Glomerular Filtration Rate 71 ML/MIN MDM Medical Decision Making Medical Screen Exam Complete: Yes Emergency Medical Condition: Yes Interpretation(s) Afebrile, no tachycardia, hypertensive No leukocytosis Electrolytes are reassuring Coags are normal Last [address] 09/27/17 [id number] Signed Impressions: CONCLUSION: 1. No acute findings. Chronic white matter ischemic changes. EKG: Normal sinus rhythm with no ST changes Differential Diagnosis Stroke, TIA, transient global amnesia, seizure Narrative Course This is an 82-year-old female who presents to the emergency department with memory loss that started today. On exam she has repetitive questioning asking where she is and why she is here but otherwise has no objective neurologic deficit. She is placed on a monitor and an IV was established. EKG is nonischemic. Labs are reassuring. CT of the head is unremarkable. I suspect the patient has transient global amnesia but given her history of stroke I think it is reasonable to admit her for neurologic evaluation and observation. She was last seen normal at 830 this morning placing her out of the window for TPA. Diagnosis Primary Impression: Amnesia Admitting Information Admitting Physician Requests: Observation Purvi Payne MD Sep 27, 2017 19:40
[2017-09-27 20:00] VITALS: BP 174/76; PULSE 89; O2SAT 99
--- NOTE | 2017-09-27 20:01 | RADRPT ---
EXAM DATE: 09/27/2017 7:46 PM EDT AGE/SEX: 82 years / Female INDICATIONS: Patient is having issues with her memory per her daughter. CLINICAL DATA: This is the patient's initial encounter. Patient reports that signs and symptoms have been present for 1 day and indicates a pain score of 0/10. MEDICAL/SURGICAL HISTORY: Hypertension. Diabetes. Cerebrovascular disease. Hysterectomy. RADIATION DOSE: 49.58 CTDI (mGy) COMPARISON: [facility], CT BRAIN W/O CONTRAST, 10/30/2010. . TECHNIQUE: CT of the head without contrast. Using automated exposure control and adjustment of the mA and/or kV according to patient size, radiation dose was kept as low as reasonably achievable to ob tain optimal diagnostic quality images. DICOM format image data is available electronically for revi ew and comparison. FINDINGS: Cerebrum: The ventricles are normal for age. No evidence of midline shift, mass lesion, hemorrhage or acute infarction. No extraaxial fluid collections are seen. Posterior Fossa: The cerebellum and brainstem are intact. The 4th ventricle is midline. The cerebe llopontine angle is unremarkable. Extracranial: The visualized portion of the orbits is intact. Skull: The calvaria is intact. No evidence of skull fracture. CONCLUSION: 1. No acute findings. Chronic white matter ischemic changes. Electronically signed by: Kole Casper MD 09/27/2017 7:59 PM EDT
[2017-09-27] MEDS ORDERED: NALOXONE HCL 0.4 MG/ML AMP IV PUSH PRN (20:30)
[2017-09-27] MEDS ORDERED: SODIUM CHLORIDE 0.9% FLUSH 10 ML FLUSH IV FLUSH PRN (20:30)
[2017-09-27] MEDS: SODIUM CHLORIDE 0.9% FLUSH 10 ML FLUSH IV FLUSH SCH (21:00)
[2017-09-27 21:05] VITALS: BP 169/72; PULSE 77; RESP 16; O2SAT 98
[2017-09-27 23:30] VITALS: BP 156/79; PULSE 79; RESP 20; TEMP 96.5; O2SAT 97
[2017-09-28 00:05] VITALS: PULSE 69
[2017-09-28 04:00] VITALS: BP 126/65; PULSE 73; RESP 20; TEMP 97.2; O2SAT 98
[2017-09-28 06:38] LABS: AUTOMATED NEUTROPHIL # 3.4 TH/MM3 (1.8-7.7); BASOPHIL # 0.1 TH/MM3 (0-0.2); BASOPHIL % 0.7 % (0.0-2.0); EOSINOPHIL # 0.3 TH/MM3 (0-0.4); EOSINOPHIL % 4.8 % (0.0-4.0); HEMATOCRIT 36.8 % (35.0-46.0); HEMOGLOBIN 11.9 GM/DL (11.6-15.3); LYMPH % 37.9 % (9.0-44.0); LYMPHOCYTE # 2.8 TH/MM3 (1.0-4.8); MEAN CELL VOLUME 89.2 FL (80.0-100.0); MEAN CORPUSCULAR HGB CONC 32.5 % (32.0-36.0); MEAN PLATELET VOLUME 8.5 FL (7.0-11.0); MONO % 9.6 % (0.0-8.0); MONOCYTE # 0.7 TH/MM3 (0-0.9); PLATELET COUNT 221 TH/MM3 (150-450); RED BLOOD COUNT 4.12 MIL/MM3 (4.00-5.30); RED CELL DISTRIBUTION WIDTH 12.8 % (11.6-17.2); WHITE BLOOD COUNT 7.3 TH/MM3 (4.0-11.0)
[2017-09-28 06:55] LABS: CALCIUM 9.1 MG/DL (8.5-10.1)
[2017-09-28 06:56] LABS: BICARBONATE 24.5 MEQ/L (21.0-32.0)
[2017-09-28 06:59] LABS: CREATININE 0.58 MG/DL (0.50-1.00)
--- NOTE | 2017-09-28 08:27 | HHI.HP ---
[facility] Jaron Spear MD Admission Diagnosis amnesia Diagnoses: Chief Complaint: Transient amnesia Travel History International Travel<30 Days: No Contact w/Intl Traveler <30 Da: No Traveled to Known Affected Are: No History of Present Illness Ms. Cuellar is a pleasant 82-year-old female with a history of stroke who presented to the emergency department on 08/27/2017 due to confusion and amnesia. Patient's daughter noted that Mr. Cuellar was asking the same question over and over and she could not remember anything she did during the day. During this interview 09/28/2017, patient reports that she did not remember coming to the hospital. She does not recall any chest pain, shortness of breath , cough or abdominal pain. She also denies any dysuria or hematuria. No fever or chills. No changes in bowel or bladder habits. At the time of this interview, patient reports feeling well and coherent. Review of Systems Except as stated in HPI: all other systems reviewed are Neg Past Family Social History Past Medical History Stroke in 2011, urinary retention, arthritis, hypertension, hyperlipidemia Past Surgical History Hysterectomy. Reported Medications Latanoprost Opth Drops (Latanoprost) 0.005% Drops 1 Drop EACH EYE HS Refrigerate until opened. Atorvastatin (Atorvastatin Calcium) 40 Mg Tab 40 Mg PO HS Felodipine ER (Felodipine) 10 mg Yumiko 10 Mg PO DAILY Enalapril (Enalapril Maleate) 20 Mg Tab 20 Mg PO DAILY Plavix (Clopidogrel Bisulfate) 75 Mg Tab 75 Mg PO DAILY Allergies: Coded Allergies: No Known Allergies (Verified Allergy, Unknown, 08/09/17) Family History No family history of Alzheimer's or Parkinson's. Social History Drinks wine couple of times a week, denies using tobacco or illicit drugs. Physical Exam Vital Signs Vital Signs Date Time Temp Pulse Resp B/P (MAP) Pulse Ox O2 Delivery O2 Flow Rate FiO2 09/28/17 04:00 97.2 73 20 126/65 (85) 98 09/28/17 00:05 69 09/27/17 23:30 96.5 79 20 156/79 (104) 97 09/27/17 21:05 77 16 169/72 (104) 98 Room Air 09/27/17 20:00 89 174/76 (108) 99 Room Air 09/27/17 19:15 81 16 99 Room Air 09/27/17 19:12 81 16 165/62 (96) 99 Room Air 160/62 (94) 09/27/17 18:47 98.6 87 16 160/68 (98) 97 Physical Exam GENERAL: This is a well-nourished, well-developed patient, in no apparent distress. SKIN: No rashes, ecchymoses or lesions. Warm and dry. HEAD: Atraumatic. Normocephalic. No temporal or scalp tenderness. EYES: Pupils equal round and reactive. No injection or drainage. ENT: Nose without bleeding, purulent drainage or septal hematoma. Airway patent. NECK: Trachea midline. No lymphadenopathy. Supple, nontender, no meningeal signs. CARDIOVASCULAR: Regular rate and rhythm without murmurs, gallops, or rubs. No JVD. RESPIRATORY: Clear to auscultation. Breath sounds equal bilaterally. No wheezes , rales, or rhonchi. GASTROINTESTINAL: Abdomen soft, non-tender, nondistended. No guarding. MUSCULOSKELETAL: Extremities without clubbing, cyanosis, or edema. NEUROLOGICAL: Awake and alert. Cranial nerves II through XII intact. No focal neurological deficits. Normal speech. Laboratory Laboratory Tests Test 09/27/17 19:00 09/28/17 05:15 White Blood Count 9.9 7.3 Red Blood Count 4.26 4.12 Hemoglobin 12.6 11.9 Hematocrit 37.8 36.8 Mean Corpuscular Volume 88.6 89.2 Mean Corpuscular Hemoglobin 29.6 29.0 Mean Corpuscular Hemoglobin Concent 33.5 32.5 Red Cell Distribution Width 13.3 12.8 Platelet Count 258 221 Mean Platelet Volume 8.1 8.5 Neutrophils (%) (Auto) 38.7 47.0 Lymphocytes (%) (Auto) 46.3 37.9 Monocytes (%) (Auto) 8.6 9.6 Eosinophils (%) (Auto) 5.1 4.8 Basophils (%) (Auto) 1.3 0.7 Neutrophils # (Auto) 3.8 3.4 Lymphocytes # (Auto) 4.6 2.8 Monocytes # (Auto) 0.9 0.7 Eosinophils # (Auto) 0.5 0.3 Basophils # (Auto) 0.1 0.1 CBC Comment DIFF FINAL DIFF FINAL Differential Comment Prothrombin Time 10.5 Prothromb Time International Ratio 1.0 Activated Partial Thromboplast Time 26.0 Blood Urea Nitrogen 24 14 Creatinine 0.77 0.58 Random Glucose 95 100 Total Protein 8.3 Albumin 4.5 Calcium Level 9.3 9.1 Alkaline Phosphatase 107 Aspartate Amino Transf (AST/SGOT) 28 Alanine Aminotransferase (ALT/SGPT) 33 Total Bilirubin 0.6 Sodium Level 136 141 Potassium Level 3.6 3.3 Chloride Level 105 107 Carbon Dioxide Level 22.5 24.5 Anion Gap 9 10 Estimat Glomerular Filtration Rate 71 99 Result Diagram: 09/28/17 0515 09/28/17 0515 Imaging Last Impressions Carotid Artery Ultrasound 09/28/17 0000 Signed Impressions: CONCLUSION: 1. Right Internal Carotid Artery: Moderate atherosclerotic plaquing at the car otid bifurcation. No high-grade or hemodynamically significant stenosis of the right internal carotid artery. 2. Left Internal Carotid Artery: Moderate atherosclerotic plaquing at the cash tid bifurcation. No high-grade or hemodynamically significant stenosis of the l eft internal carotid artery. There is some elevated velocity in the left pie icer machine al carotid artery suggestive of stenosis. Head CT 09/27/17 8559 Signed Impressions: CONCLUSION: 1. No acute findings. Chronic white matter ischemic changes. Caprini VTE Risk Assessment Caprini VTE Risk Assessment: No/Low Risk (score <= 1) Caprini Risk Assessment Model Point Value = 1 Point Value = 2 Point Value = 3 Point Value = 5 Age 41-60 Minor surgery BMI > 25 kg/m2 Swollen legs Varicose veins or History of unexplained or recurrent spontaneous Oral contraceptives or hormone replacement Sepsis (< 1 month) Serious lung disease, including pneumonia (< 1 month) Abnormal pulmonary function Acute myocardial infarction Congestive heart failure (< 1 month) History of inflammatory bowel disease Medical patient at bed rest Age 61-74 Arthroscopic surgery Major open surgery (> 45 min) Laparoscopic surgery (> 45 min) Malignancy Confined to bed (> 72 hours) Immobilizing plaster cast Central venous access Age >= 75 History of VTE Family history of VTE Factor V Leiden Prothrombin [id number] Lupus anticoagulant Anticardiolipin antibodies Elevated serum homocysteine Heparin-induced thrombocytopenia Other congenital or acquired thrombophilia Stroke (< 1 month) Elective arthroplasty Hip, pelvis, or leg fracture Acute spinal cord injury (< 1 month) Prophylaxis Regimen Total Risk Factor Score Risk Level Prophylaxis Regimen 0-1 Low Early ambulation 2 Moderate Order ONE of the following: *Sequential Compression Device (SCD) *Heparin 5000 units SQ BID 3-4 Higher Order ONE of the following medications: *Heparin 5000 units SQ TID *Enoxaparin/Lovenox 40 mg SQ daily (WT < 150 kg, CrCl > 30 mL/min) *Enoxaparin/Lovenox 30 mg SQ daily (WT < 150 kg, CrCl > 10-29 mL/min) *Enoxaparin/Lovenox 30 mg SQ BID (WT < 150 kg, CrCl > 30 mL/min) AND/OR *Sequential Compression Device (SCD) 5 or more Highest Order ONE of the following medications: *Heparin 5000 units SQ TID (Preferred with Epidurals) *Enoxaparin/Lovenox 40 mg SQ daily (WT < 150 kg, CrCl > 30 mL/min) *Enoxaparin/Lovenox 30 mg SQ daily (WT < 150 kg, CrCl > 10-29 mL/min) *Enoxaparin/Lovenox 30 mg SQ BID (WT < 150 kg, CrCl > 30 mL/min) AND *Sequential Compression Device (SCD) Assessment and Plan Problem List: (1) Amnesia ICD Code: R41.3 - Other amnesia Status: Acute (2) Hypertension ICD Code: I10 - Essential (primary) hypertension (3) History of CVA (cerebrovascular accident) ICD Code: Z86.73 - Personal history of transient ischemic attack (TIA), and cerebral infarction without residual deficits Assessment and Plan Ms. Cuellar is a pleasant 82-year-old female with a history of stroke, hypertension who was admitted to the hospital due to transient amnesia. Patient does not recall what she did yesterday or coming to the hospital. CT head and carotid ultrasounds were negative for any acute findings. Transient global amnesia -CT head and carotid ultrasound studies are negative. -MRI brain and MRA pending. -Urinalysis shows unremarkable findings. History of stroke Hypertension Hyperlipidemia -Continue Lipitor 40 mg nightly, Plavix 75 daily -Continue enalapril 20 mg daily, felodipine 10 mg daily. Full code. SCDs. Discharge plan: If MRI studies are negative, will likely discharge patient home either today or tomorrow morning. Mary Prasad DO Sep 28, 2017 08:27
[2017-09-28] MEDS ORDERED: POTASSIUM CHLORIDE 20 MEQ CONTROLLED RELEASE TAB PO SCH (09:00)
[2017-09-28] MEDS ORDERED: CLOPIDOGREL 75 MG TAB PO SCH (09:00)
[2017-09-28 09:16] VITALS: BP 149/67; PULSE 78; RESP 18; TEMP 97.3; O2SAT 97
[2017-09-28] MEDS: SODIUM CHLORIDE 0.9% FLUSH 10 ML FLUSH IV FLUSH SCH (09:31)
[2017-09-28 10:20] LABS: CHOLESTEROL/ HDL RATIO 2.43 RATIO; HDL CHOLESTEROL 69.5 MG/DL (40.0-60.0)
--- NOTE | 2017-09-28 11:02 | RADRPT ---
EXAM DATE: 09/28/2017 10:56 AM EDT AGE/SEX: 82 years / Female INDICATIONS: Confusion and memory loss. CLINICAL DATA: This is the patient's initial encounter. Patient reports that signs and symptoms have been present for 2 days and indicates a pain score of 0/10. MEDICAL/SURGICAL HISTORY: Hypercholesterolemia. Cerebrovascular accident. Anticoagulant therapy . Hypertension. Blood transfusion. Skin cancer. Glaucoma. Hysterectomy. COMPARISON: No prior exams available for comparison. VELOCITY PARAMETERS: ICA/CCA Ratio: Right 1.6 , Left 1.0 ICA: Right 105 cm/sec, Left 70 cm/sec CCA: Right 64 cm/sec, Left 72 cm/sec ECA: Right 132 cm/sec, Left 239 cm/sec Vertebral: Right 50 cm/sec antegrade, Left 48 cm/sec antegrade FINDINGS: Right Carotid: Moderate atherosclerotic plaquing at the bifurcation. No significant stenosis is visua lized. The waveforms are within normal limits for the internal carotid artery.. There is some elevat ion of velocity of the external carotid artery. Left Carotid: Moderate calcified plaquing at the bifurcation. No significant stenosis is visualized. The waveforms are within normal limits for the internal carotid artery.. There is some elevation of velocity of the external carotid artery. Other: None. CONCLUSION: 1. Right Internal Carotid Artery: Moderate atherosclerotic plaquing at the carotid bifurcation. No h igh-grade or hemodynamically significant stenosis of the right internal carotid artery. 2. Left Internal Carotid Artery: Moderate atherosclerotic plaquing at the carotid bifurcation. No hi gh-grade or hemodynamically significant stenosis of the left internal carotid artery. There is some e levated velocity in the left external carotid artery suggestive of stenosis. Electronically signed by: David Garcia MD 09/28/2017 11:01 AM EDT
[2017-09-28 12:41] LABS: BILIRUBIN, URINE NEG (NEG); BLOOD, URINE NEG (NEG); GLUCOSE,URINE NEG (NEG); KETONE, URINE NEG (NEG); NITRITE,URINE NEG (NEG); PH, URINE 6.5 (5.0-8.5); URINE COLOR YELLOW (YELLW/STRAW); URINE LEUKOCYTE ESTERASE NEG (NEG)
[2017-09-28 13:13] VITALS: BP 174/70; PULSE 71; RESP 16; TEMP 96.5; O2SAT 98
[2017-09-28] MEDS ORDERED: ENALAPRIL MALEATE 10 MG TAB PO SCH (13:45)
--- NOTE | 2017-09-28 14:01 | RADRPT ---
EXAM DATE: 09/28/2017 1:51 PM EDT AGE/SEX: 82 years / Female INDICATIONS: CVA. Confusion. CLINICAL DATA: This is the patient's initial encounter. Patient reports that signs and symptoms have been present for 2 days and indicates a pain score of 0/10. MEDICAL/SURGICAL HISTORY: Stroke. Hypertension. Hysterectomy. COMPARISON: [facility], CT BRAIN W/O CONTRAST, 09/27/2017. . TECHNIQUE: 3D [id number] MRA was performed. Source images, multiplanar STS MIP, and 3D volum e MIP reconstructions were reviewed. FINDINGS: There is excellent visualization of the major intracranial arteries out to the second-order branch ve ssels. There is no evidence for aneurysm, vessel truncation or stenosis, and no evidence for vascula r malformation. CONCLUSION: 1. Unremarkable examination. Electronically signed by: David Garcia MD 09/28/2017 2:00 PM EDT
--- NOTE | 2017-09-28 15:09 | RADRPT ---
EXAM DATE: 09/28/2017 2:00 PM EDT AGE/SEX: 82 years / Female INDICATIONS: CVA. Confusion. CLINICAL DATA: This is the patient's initial encounter. Patient reports that signs and symptoms have been present for 2 days and indicates a pain score of 0/10. MEDICAL/SURGICAL HISTORY: Stroke. Hypertension. Hysterectomy. COMPARISON: No prior exams available for comparison. TECHNIQUE: Multiplanar, multisequence examination of the brain was performed without contrast. FINDINGS: Cerebrum: Mild to moderate diffuse cerebral atrophy. The ventricles are normal for degree of atrophy . No evidence of midline shift, mass lesion, hemorrhage or acute infarction. No extraaxial fluid co llections are seen. The pituitary gland and suprasellar cistern are normal in configuration. White Matter: Prominent confluent periventricular and deep white matter T2 prolongation. Posterior Fossa: The cerebellum and brainstem are intact. The 4th ventricle is midline. The cerebel lopontine angle is unremarkable. The cerebellar tonsils are normal in position. Diffusion Imaging: No focal areas of restricted diffusion are seen. No evidence of acute infarction . Extracranial: The visualized portions of the orbits and paranasal sinuses are unremarkable. CONCLUSION: 1. Senescent changes with prominent periventricular ischemic white matter demyelination. 2. No acute abnormality. Specifically, no acute infarction as questioned. Electronically signed by: Jasper Trotter MD 09/28/2017 3:07 PM EDT
--- NOTE | 2017-09-28 17:00 | EKG ---
Date Performed: 09/27/2017 Time Performed: 18:51:17 PTAGE: 82 years EKG: Sinus rhythm BORDERLINE LEFT AXIS DEVIATION BORDERLINE ECG PREVIOUS TRACING :10/30/2010@15.14 Since the previous tracing, no significant change noted DOCTOR: Gloria Mcguire Interpretating Date/Time 09/28/2017 16:58:14
[2017-09-28] MEDS ORDERED: LATANOPROST 0.005% OPHT SOLN 2.5 ML BTL EACH EYE SCH (21:00)
[2017-09-28] MEDS ORDERED: ATORVASTATIN 40 MG TAB PO SCH (21:00)
== END 2017-09-28 16:35 | disposition home or self-care (01) ==
LOC: PHED 18:39 → PHEDA 20:35 → PH3A 23:39
PROVIDERS: ADMIT Hospitalist; ATTEND Hospitalist
DX: R41.0 Disorientation, unspecified (principal); Z86.73 Personal history of transient ischemic attack (TIA), and cerebral infarction without residual deficits; M19.90 Unspecified osteoarthritis, unspecified site; Z85.828 Personal history of other malignant neoplasm of skin; E78.00 Pure hypercholesterolemia, unspecified; H40.9 Unspecified glaucoma; I10 Essential (primary) hypertension; Z79.899 Other long term (current) drug therapy; Z90.710 Acquired absence of both cervix and uterus; R90.82 White matter disease, unspecified; R94.31 Abnormal electrocardiogram [ECG] [EKG]; Z79.01 Long term (current) use of anticoagulants; I65.23 Occlusion and stenosis of bilateral carotid arteries
CPT/HCPCS: 70450; 70544; 70551; 80048; 80053; 80061; 81001; 85025; 85610; 85730; 93005; 93880; 96125; 97161; 97165; 99285; G0378; G8987; G8988; G8989; G9168; G9169; G9170